=== PATIENT | female | born 1950 | race Caucasian/White ===

== ENCOUNTER 2019-11-01 16:43 | Inpatient (IN) | payer MEDICARE, OTHER ==
[~2019-11-01] VITALS: Ht 152.4 cm; Wt 84.4 kg
[~2019-11-01 16:43] MED LIST: ATORVASTATIN CA20 MG PO; DEXAMETHASONE SOD PHOS INJ 4 MG/ML VIAL ONE; ETOMIDATE 2 MG/ML 10 ML INJ IV ONE; ISOSORBIDE MONO30 MG PO; LIDOCAINE HCL 2% LOCAL INJ 5 ML SDV VIAL INJ ONE; ONDANSETRON HCL INJ 2MG/ML 2ML 2 MG/ML VIAL ONE; SEVOFLURANE INHAL SOLN 250 ML PEN BTL ONE
--- OUTSIDE RECORDS SUMMARY | 2019-11-01 16:47 | XMS REPORT | Summary of Care ---
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 2Data migrated from [employer] on 01/21/15. Allergies, Adverse Reactions, Alerts Substance Reaction Severity Status cyclobenzaprine1 Active 1Data migrated from [employer] on 01/20/15. Originally documented as CYCLOBENZAPRINE HCL. Medications No data available for this section Results No data available for this section Immunizations No data available for this section Procedures Procedure Date Related Diagnosis Body Site MRI of cervical spine1 07/20/14 Cauterization of uterus Dilation and curettage of uterus Procedure on ankle joint 1mri cervical w/wo Social History Social History Type Response Substance Abuse Use: None. Alcohol Past Smoking Status Never smoker; Type: Cigaret omega; Previous treatment: None; Ready to change: No; Concerns about tobacco use in house hold: No; Exposure to Tobacco Smoke None; Cigarette Smoking Last 365 Days N o; Reg Smoking Cessation Counseling No Assessment and Plan No data available for this section
--- OUTSIDE RECORDS SUMMARY | 2019-11-01 16:47 | XMS REPORT | Continuity of Care Document ---
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 [facility] Benign neoplasm of vertebral column, exc luding sacrum and coccyx (disorder) Active 08/22/2014 Problem 04/02/2016 Data migrated from [employer] on 01/21/15. [facility] OPIChastity Donald Urinary incontinence (finding) Resolved Problem 08/2015 [facility] [place] History of malignant neoplasm of cervix (situation) Resolved Problem 04/02/2016 [facility] Hypercholesterolemia (disorder) Resolved Problem 08/2015 [facility] OPIChastity [place] Osteoarthritis (disorder) Reso lved Problem 08/2015 [facility] OPID [place] Obesity (disorder) Active Problem 04/02/2016 [facility] Malignant neoplasm of skin (disorder) Resolved Problem 04/02/2016 [facility] OPI D Odilon CARCINOMA IN SITU OF CERVIX, UNSPECIFIED Active [facility] Medications Medication Details Route Status Patient Instructions Ordering Provider Order Date Source docusate sodium 100 mg oral capsule 100 mg = 1 cap, PO, BID, PRN Constipation, # 60 cap, 0 Refill(s) Active 10/22/2015 [facility] Acetaminophen 325 MG / Hydrocodone Alejandra trate 5 MG Oral Tablet [[place] 5/325] 1 tab, PO, QID, PRN Pain Score 1-3, # 60 tab, 0 Refill(s), other Active 10/22/2015 [facility] fentaNYL (ANES) Route: IV, Yuri g form: INJ, ONCE, Stop date: 10/21/15 16:10:00 CDT Inactive 10/21/2015 [facility] Enoxaparin Notes: (Same as: Lo venox) No Longer Active 10/21/2015 [facility] Hydromorphone Notes: (Same as: Dilaudid) conc = 0.5 mg/ml Hydromorphone [employer]ILDER Dose: ;Delay: ;Basal: No Longer Active 10/21/2015 [facility] Acetaminophen 325 MG / Hydrocodone Alejandra trate 5 MG Oral Tablet [[place] 5/325] Notes: (Same as: [place] 325/5) Do not ex ceed 4gm/day of acetaminophen. No Longer Activ e 10/21/2015 [facility] metoprolol (ANES) Route: IV, D rug form: INJ, ONCE, Stop date: 10/21/15 15:51:00 CDT Inactive 10/21/2015 [facility] ondansetron (ANES) Route: IV, Drug form: INJ, ONCE, Stop date: 10/21/15 15:51:00 CDT Inactive 10/21/2015 [facility] Docusate Notes: (Same as: Cola ce) (Do Not Crush) No Longer Active 10/21/2015 [facility] Ondansetron Notes: (Same as: Blair mendez) MEDICATION WASTE Product Size: 4 mg Product Wasted: ___ mg No Longer Active 10/21/2015 [facility] Calcium Chloride 0.002 MEQ/ML / Glucose 50 MG/ML / Potassium Chloride 0.004 MEQ/ML / Sodium Chloride 0.147 MEQ/ML Injectable Solution 1,000 mL, Rate: 125 ml/hr, Infuse over: 8 hr, Route: IV, Dosing Weight 84.091 kg, Total Volume: 1,000, Start date: 10/21/15 15:48:00 CDT, Duration: 30 day, Stop date: 11/20/15 15:47:00 CDT No Longer Active 10/21/2015 [facility] Simethicone Notes: (Same as: Hammad ylicon) No Longer Active 10/21/2015 [facility] Bisacodyl Notes: (Same As: Dul colax, Bisco-Lax) No Longer Active 10/21/2015 [facility] Magnesium Hydroxide Notes: ([facility] as: Milk of Magnesia, MOM) No Longer Active 10/21/2015 [facility] Naloxone Notes: Same as Narcan No Longer Active 10/21/2015 [facility] Calcium Chloride 0.0014 MEQ/ML / Potassi um Chloride 0.004 MEQ/ML / Sodium Chloride 0.103 MEQ/ML / Sodium Lactate 0.028 MEQ/ML Injectable Solution 1,000 mL, Rate: 500 ml/hr, Infuse over: 2 hr, Route: IV, Dosing Weight 84.091 kg, Total Volume: 1,000, Start date: 10/21/15 15:37:00 CDT, Duration: 30 day, Stop date: 11/20/15 15:36:00 CDT Inactive 10/21/2015 [facility] Morphine 2 mg, Route: IVP, Q5M in, Dosing Weight 84.091, kg, PRN Pain Score 4-6, Start date: 10/21/15 15:37:00 CDT, Duration: 5 doses or times, Stop date: Limited # of times Inactive 10/21/2015 [facility] Hydralazine 10 mg, Route: IVP, Q20Min, Dosing Weight 84.091, kg, PRN Elevated BP, Start date: 10/21/15 15:37:00 CDT, Duration: 2 doses or times, Stop date: Limited # of times Inactive 10/21/2015 [facility] Metoprolol 1 mg, Route: IVP, Q 5Min, Dosing Weight 84.091, kg, PRN Other -See Comment, Start date: 10/21/15 15:37:00 CDT, Duration: 5 doses or times, Stop date: Limited # of times Inactive 10/21/2015 [facility] Meperidine 12.5 mg, Route: IVP , Q30Min, Dosing Weight 84.091, kg, PRN Other -See Comment, For shivering, Start date: 10/21/15 15:37:00 CDT, Duration: 2 doses or times, Stop date: Limited # of times Inactive 10/21/2015 [facility] Fentanyl 25 microgram, Route: IVP, Q5Min, Dosing Weight 84.091, kg, PRN Pain Score 4-6, Start date: 10/21/15 15:37:00 CDT, Duration: 4 doses or times, Stop date: Limited # of times Inactive 10/21/2015 [facility] ceFAZolin (ANES) (ANES) Route: IV, Drug form: INJ, Start date: 10/21/15 15:03:00 CDT, Stop date: 10/21/15 16:03:00 CDT Inactive 10/21/2015 [facility] hydromorphone (ANES) Route: IV , Drug form: INJ, ONCE, Stop date: 10/21/15 13:55:00 CDT Inactive 10/21/2015 [facility] dexamethasone (ANES) Route: IV , Drug form: INJ, ONCE, Stop date: 10/21/15 13:19:00 CDT Inactive 10/21/2015 [facility] metoclopramide (ANES) Route: I V, Drug form: INJ, ONCE, Stop date: 10/21/15 13:19:00 CDT Inactive 10/21/2015 [facility] glycopyrrolate (ANES) Route: I V, Drug form: INJ, ONCE, Stop date: 10/21/15 13:03:00 CDT Inactive 10/21/2015 [facility] acetaminophen (ANES) (ANES) [place]: IV, Drug form: INJ, Start date: 10/21/15 12:46:00 CDT, Stop date: 10/21/15 13:46:00 CDT Inactive 10/21/2015 [facility] rocuronium (ANES) Route: IV, D rug form: INJ, ONCE, Stop date: 10/21/15 12:35:00 CDT Inactive 10/21/2015 [facility] fentaNYL (ANES) Route: IV, Yuri g form: INJ, ONCE, Stop date: 10/21/15 12:35:00 CDT Inactive 10/21/2015 [facility] lidocaine (ANES) Route: IV, Dr ug form: INJ, ONCE, Stop date: 10/21/15 12:35:00 CDT Inactive 10/21/2015 [facility] propofol (ANES) Route: IV, Yuri g form: INJ, ONCE, Stop date: 10/21/15 12:35:00 CDT Inactive 10/21/2015 [facility] midazolam (ANES) Route: IV, Dr ug form: SOLN, ONCE, Stop date: 10/21/15 12:35:00 CDT Inactive 10/21/2015 [facility] ceFAZolin (ANES) (ANES) Route: IV, Drug form: INJ, Start date: 10/21/15 12:06:00 CDT, Stop date: 10/21/15 13:06:00 CDT Inactive 10/21/2015 [facility] Lactated Ringers Injection IV (ANES) (ANES) Route: IV, Total Volume: 1,000, Start date: 10/21/15 11:38:00 CDT, Stop date: 10/21/15 12:38:00 CDT Inactive 10/21/2015 [facility] Calcium Chloride 0.0014 MEQ/ML / Potassi um Chloride 0.004 MEQ/ML / Sodium Chloride 0.103 MEQ/ML / Sodium Lactate 0.028 MEQ/ML Injectable Solution 1,000 mL, Rate: 25 ml/hr, Infuse over: 4 0 hr, Route: IV, Dosing Weight 84.091 kg, Total Volume: 1,000, Start date: 10/21/15 11:29:00 CDT, Duration: 30 day, Stop date: 11/20/15 11:28:00 CDT Inactive 10/21/2015 [facility] AMLODIPINE BESY-BENAZEPRIL HCL 5-10 MG CAPS 1 TAB DAILY Active 08/22/2014 [facility] DIAZEPAM 5 MG TABS 1 TAB DAILY No Longer Active 08/22/2014 [facility] AMLODIPINE BESY-BENAZEPRIL HCL 5-10 MG CAPS 1 TAB DAILY Active 08/22/2014 [facility] AMLODIPINE BESY-BENAZEPRIL HCL 5-10 MG CAPS 1 TAB DAILY Active 08/22/2014 [facility] Allergies, Adverse Reactions, Alerts Substance Category Reaction Severity Reaction type Status Date Reported Comments Source CYCLOBENZAPRINE HCL Drug aller gy CYCLOBENZA PAMELA HCL 08/22/2014 [facility] cyclobenzaprine<sup>1</sup> As sertion Drug aller gy Active 08/22/2014 Data migrated from [employer] on 01/20/15. Originally documented as CYCLOBENZAPRINE HCL. [facility] Dilaudid Assertion Drug allergy Active [facility] Immunizations No Data Provided for This Section Results Order Name Results Value Reference Range Date Interpretation Comments Source CHEM PANEL Magnesium Lvl 1.9 1.8 - 2.4 10/22/2015 [facility] ELECTROLYTES CO2 25 24 - 32 10/22/2015 [facility] ELECTROLYTES eGFR 98 10/22/2015 Result Comment: The eGFR is calculated using the CKD-EPI formula. In most young, healthy individuals the eGFR will be >90 mL/min/1.73m2. The eGFR declines with age. An eGFR of 60-89 may be normal in some populations, particularly the elderly, for whom the CKD-EPI formula has not been extensively validated. Use of the eGFR is not recommended in the following populations:

Individuals with unstable creatinine concentrations, including patients and those with serious co-morbid conditions.

Patients with extremes in muscle mass or diet.

The data above are obtained from the National Kidney Disease Education Program (NKDEP) which additionally recommends that when the eGFR is used in patients with extremes of body mass index for purposes of drug dosing, the eGFR should be multiplied by the estimated BMI. [facility] ELECTROLYTES Globulin 3.2 2.0 - 4.0 10/22/2015 [facility] ELECTROLYTES Total Protein 5.9 6.4 - 8.4 10/22/2015 [facility] ELECTROLYTES B/C Ratio 19 6 - 25 10/22/2015 [facility] ELECTROLYTES Calcium Lvl 7.9 8.5 - 10.5 10/22/2015 [facility] ELECTROLYTES Chloride Lvl 109 95 - 109 10/22/2015 [facility] ELECTROLYTES AGAP 11.8 10.0 - 20.0 10/22/2015 [facility] ELECTROLYTES Bili Total 0.5 0.2 - 1.3 10/22/2015 [facility] ELECTROLYTES Alk Phos 81 39 - 136 10/22/2015 [facility] ELECTROLYTES Creatinine Lvl 0.5 4 0.50 - 1.40 10/22/2015 [facility] ELECTROLYTES Potassium Lvl 3.8 3.5 - 5.1 10/22/2015 [facility] ELECTROLYTES Sodium Lvl 142 135 - 145 10/22/2015 [facility] ELECTROLYTES ALT 21 0 - 65 10/22/2015 [facility] ELECTROLYTES AST 18 0 - 37 10/22/2015 [facility] ELECTROLYTES A/G Ratio 0.8 0.7 - 1.6 10/22/2015 [facility] ELECTROLYTES Albumin Lvl 2.7 3.5 - 5.0 10/22/2015 [facility] ELECTROLYTES BUN 10 7 - 22 10/22/2015 [facility] ELECTROLYTES Glucose Lvl 152 70 - 99 10/22/2015 [facility] HEMATOLOGY Segs 75.9 45.0 - 75.0 10/22/2015 [facility] HEMATOLOGY Lymphocytes 15.0 20.0 - 40.0 10/22/2015 [facility] Monocytes 8.7 2.0 - 12.0 10/22/2015 [facility] HEMATOLOGY Eosinophils 0.1 0.0 - 4.0 10/22/2015 [facility] HEMATOLOGY Basophils 0.3 0.0 - 1.0 10/22/2015 [facility] Segs-Bands # 7.3 1.5 - 8.1 10/22/2015 [facility] Lymphocytes # 1.5 1.0 - 5.5 10/22/2015 [facility] Monocytes # 0.8 0.0 - 0.8 10/22/2015 [facility] WBC 9.7 3.7 - 10.4 10/22/2015 [facility] RBC 3.66 4.20 - 5.40 10/22/2015 [facility] Hct 34.7 36.0 - 48.0 10/22/2015 [facility] MCV 94.9 80.0 - 98.0 10/22/2015 [facility] MCH 31.3 27.0 - 31.0 10/22/2015 [facility] Hgb 11.5 12.0 - 16.0 10/22/2015 [facility] MCHC 33.0 32.0 - 36.0 10/22/2015 [facility] RDW 12.9 11.5 - 14.5 10/22/2015 [facility] Platelet 154 133 - 450 10/22/2015 [facility] MPV 9.0 7.4 - 10.4 10/22/2015 [facility] CHEM PANEL eGFR 83 10/22/2015 Result Comment: The eGFR is calculated using the CKD-EPI formula. In most young, healthy individuals the eGFR will be >90 mL/min/1.73m2. The eGFR declines with age. An eGFR of 60-89 may be normal in some populations, particularly the elderly, for whom the CKD-EPI formula has not been extensively validated. Use of the eGFR is not recommended in the following populations:

Individuals with unstable creatinine concentrations, including patients and those with serious co-morbid conditions.

Patients with extremes in muscle mass or diet.

The data above are obtained from the National Kidney Disease Education Program (NKDEP) which additionally recommends that when the eGFR is used in patients with extremes of body mass index for purposes of drug dosing, the eGFR should be multiplied by the estimated BMI. [facility] CHEM PANEL Creatinine Lvl 0.75 0.50 - 1.40 10/22/2015 [facility] HEMATOLOGY PTT 22.5 22.9 - 35.8 10/22/2015 [facility] HEMATOLOGY Platelet 140 133 - 450 10/22/2015 [facility] BLOOD BANK RESULTS ABO/Rh A POS 10/15/2015 [facility] BLOOD BANK RESULTS Antibody Scrn Negative (10/15/15 5:25 PM) 10/15/2015 [facility] ELECTROLYTES AGAP 12.1 10.0 - 20.0 10/15/2015 [facility] ELECTROLYTES B/C Ratio 28 6 - 25 10/15/2015 [facility] ELECTROLYTES Globulin 3.6 2.0 - 4.0 10/15/2015 [facility] ELECTROLYTES A/G Ratio 1.1 0.7 - 1.6 10/15/2015 [facility] ELECTROLYTES eGFR 94 10/15/2015 Result Comment: The eGFR is calculated using the CKD-EPI formula. In most young, healthy individuals the eGFR will be >90 mL/min/1.73m2. The eGFR declines with age. An eGFR of 60-89 may be normal in some populations, particularly the elderly, for whom the CKD-EPI formula has not been extensively validated. Use of the eGFR is not recommended in the following populations:

Individuals with unstable creatinine concentrations, including patients and those with serious co-morbid conditions.

Patients with extremes in muscle mass or diet.

The data above are obtained from the National Kidney Disease Education Program (NKDEP) which additionally recommends that when the eGFR is used in patients with extremes of body mass index for purposes of drug dosing, the eGFR should be multiplied by the estimated BMI. [facility] ELECTROLYTES Calcium Lvl 8.5 8.5 - 10.5 10/15/2015 [facility] ELECTROLYTES Total Protein 7.4 6.4 - 8.4 10/15/2015 [facility] ELECTROLYTES Albumin Lvl 3.8 3.5 - 5.0 10/15/2015 [facility] ELECTROLYTES AST 30 0 - 37 10/15/2015 [facility] ALT 33 0 - 65 10/15/2015 [facility] Alk Phos 101 39 - 136 10/15/2015 [facility] Bili Total 0.3 0.2 - 1.3 10/15/2015 [facility] BUN 17 7 - 22 10/15/2015 [facility] Glucose Lvl 82 70 - 99 10/15/2015 [facility] Creatinine Lvl 0.6 0 0.50 - 1.40 10/15/2015 [facility] Sodium Lvl 138 135 - 145 10/15/2015 [facility] Potassium Lvl 4.1 3.5 - 5.1 10/15/2015 [facility] CO2 24 24 - 32 10/15/2015 [facility] Chloride Lvl 106 95 - 109 10/15/2015 [facility] Eosinophils 4.6 0.0 - 4.0 10/15/2015 [facility] Monocytes 7.2 2.0 - 12.0 10/15/2015 [facility] Segs 45.1 45.0 - 75.0 10/15/2015 [facility] Lymphocytes 42.1 20.0 - 40.0 10/15/2015 [facility] Eosinophils # 0.3 0.0 - 0.5 10/15/2015 [facility] Monocytes # 0.4 0.0 - 0.8 10/15/2015 [facility] Segs-Bands # 2.6 1.5 - 8.1 10/15/2015 [facility] Basophils 1.0 0.0 - 1.0 10/15/2015 [facility] Lymphocytes # 2.4 1.0 - 5.5 10/15/2015 [facility] Basophils # 0.1 0.0 - 0.2 10/15/2015 [facility] MCV 94.7 80.0 - 98.0 10/15/2015 [facility] Hct 40.4 36.0 - 48.0 10/15/2015 [facility] Hgb 13.3 12.0 - 16.0 10/15/2015 [facility] RBC 4.27 4.20 - 5.40 10/15/2015 [facility] WBC 5.7 3.7 - 10.4 10/15/2015 [facility] MPV 9.0 7.4 - 10.4 10/15/2015 [facility] MCHC 32.8 32.0 - 36.0 10/15/2015 [facility] HEMATOLOGY MCH 31.1 27.0 - 31.0 10/15/2015 [facility] HEMATOLOGY Platelet 215 133 - 450 10/15/2015 [facility] HEMATOLOGY RDW 12.9 11.5 - 14.5 10/15/2015 [facility] Pathology Reports No Data Provided for This Section Diagnostic Reports Report Value Date Source Spine cervical w/wo contrast MRI EXAM: MRI CERVICAL SPINE WITH AND WITHOUT CONTRAST DATE: 03/30/2016 10:58 AM CDT INDICATION: Pain with radiculopathy COMPARISON: Magnetic resonance imaging cervical spine without contrast 01/06/2016. TECHNIQUE: Multiplanar, multisequence imaging of the cervical spine. IV contrast: 18 mL Dotarem. FINDINGS: The cervical vertebral bodies are normal in height and unchanged in alignment. Laminectomy changes are seen at C1, C2 and C3. No discrete residual tumor is identified. Expected dural enhancement along the laminectomy defects. Spinal canal is patulous levels of prior surgery. Stable subtle myelomalacia at C2-C3. Stable degenerative changes throughout the remainder of the cervical spine. IMPRESSION: Stable postoperative changes following resection of the cervical canal meningioma without evidence of residual or recurrent tumor. 03/30/2016 [facility] Spine cervical wo contrast MRI EXAM: MRI CERVICAL SPINE WITHOUT CONTRAST DATE: 01/06/2016 INDICATION: history of C1-C3 laminectomy and excision of a intradural meningioma on 07/22/2014 COMPARISON: Magnetic resonance imaging cervical spine 07/20/2014, CT cervical spine 08/30/2014, magnetic resonance imaging cervical spine 01/24/2015 ( ) TECHNIQUE: Multiplanar, multisequence noncontrast imaging of the cervical spine. IV contrast: None. FINDINGS: The height and the structure of the cervical vertebral bodies are well- maintained. No bone marrow signal abnormality. Laminectomy changes at C1, C2 and C3. No discrete recurrent or residual tumor, however, evaluation is limited due to lack of IV contrast administration. The spinal canal is patulous with no cord compression. Stable subtle myelomalacic changes within the cord at C2-C3 level. Stable degenerative changes. IMPRESSION: Stable postoperative changes following gross total resection of the cervical canal meningioma with limited evaluation due to lack of IV contrast administration. No discrete new lesions and stable appearance of the degenerative changes in the cervical spine. 01/06/2016 [facility] Consultation Notes No Data Provided for This Section Discharge Summaries No Data Provided for This Section History and Physicals No Data Provided for This Section Vital Signs Vital Sign Value Date Comments Source Systolic (mm Hg) 99 10/22/2015 [facility] Diastolic (mm Hg) 57 10/22/2015 [facility] Respitory Rate 16 10/22/2015 [facility] Heart Rate 58 10/22/2015 [facility] Temperature Oral (F) 97.8 F 10/22/2015 [facility] Respitory Rate 14 10/22/2015 [facility] Systolic (mm Hg) 103 10/22/2015 [facility] Diastolic (mm Hg) 62 10/22/2015 [facility] Temperature Oral (F) 98.2 F 10/22/2015 [facility] Heart Rate 65 10/22/2015 [facility] Respitory Rate 16 10/22/2015 [facility] Heart Rate 74 10/22/2015 [facility] Systolic (mm Hg) 134 10/22/2015 [facility] Diastolic (mm Hg) 78 10/22/2015 [facility] Temperature Oral (F) 98.4 F 10/22/2015 [facility] Weight 84.091 10/15/2015 [facility] Height 154.94 cm 10/15/2015 [facility] BMI Calculated 35.03 10/15/2015 [facility] Weight 167.0 01/30/2015 [facility] Height 60 0 01/30/2015 [facility] Temperature Oral (F) 99.1 F 01/30/2015 [facility] Heart Rate 74 01/30/2015 [facility] Systolic (mm Hg) 124 01/30/2015 [facility] Diastolic (mm Hg) 78 01/30/2015 [facility] Weight 173.2 08/22/2014 [facility] Height 60 0 08/22/2014 [facility] Temperature Oral (F) 98.7 F 08/22/2014 [facility] Heart Rate 98 08/22/2014 [facility] Systolic (mm Hg) 141 08/22/2014 [facility] Diastolic (mm Hg) 85 08/22/2014 [facility] Encounters Location Location Details Encounter Type Encounter Number Reason For Visit Attending Provider ADM Date DC Date Status Source [facility] [place] [id number] Tc Naik MD 08/22/2014 08/22/2014 [facility] [place] [id number] Tc Naik MD 11/21/2014 11/21/2014 [facility] [place] [facility] [id number] Russel Momin 01/24/2015 01/25/2015 [facility] [place] [id number] Tc Naik MD 01/30/2015 01/30/2015 [facility] OBS Observation Patient [id number] Chas Duran IRENE 10/21/2015 10/22/2015 [facility] Outpatient [id number] RUSSEL MOMIN 12/04/2015 [facility] [place] [facility] [id number] Russel Momin Jr 01/06/2016 01/07/2016 [facility] [id number] RUSSEL MOMIN 01/08/2016 [facility] [place] [facility] [id number] Russel Momin Jr 03/30/2016 03/31/2016 [facility] [id number] RUSSEL MOMIN 04/01/2016 [facility] Procedures Procedure Code Date Perfomer Comments Source MRI of cervical spine<sup>1</sup> [id number] 07/20/2014 mri cervical w/wo [facility], [facility] Cauterization of uterus [id number] [facility], [facility] Dilation and curettage of uterus [id number] [facility] Procedure on ankle joint [id number] [facility], [facility] Assessment and Plan Assessment and Plan Date Source Extracted from:Title: Clinical Document Author: Madelaine Mcgowan MD Date: 10/22/15 Progress Note - Daily [facility] Completed: Thursday, OCTOBER 22, 2015, 08:41 by Madelaine Mcgowan MD RM: [id number] - 1D, SE C4B WOLFGANG GURROLA 65y (: 1950) F Attending: Chas Mendes MD Service: [facility] Reason for Admission: UNK Working DRG: None Documented Code status: Full Code [Ordered] Current diet: Isolation: None Documented Allergies: cyclobenzaprine SUBJECTIVE Patient hungry No SOB/CP/CESAR No N/V/D/C Pain well controlled on [employer]DER OBJECTIVE General- NAD, A&Ox3 CVS- RRR Chest- CTAB no wheezing Abdomen- Soft appropriately tender, +BS, incision CDI Extremities- no CCE Skin- No rashes or lesions appreciated 24hr Labs 10/21 0656 Magnesium Lvl 1.9 Sodium Lvl 142 Potassium Lvl 3.8 Chloride Lvl 109 CO2 25 AGAP 11.8 Glucose Lvl 152 H Creatinine Lvl 0.54 BUN 10 B/C Ratio 19 Total Protein 5.9 L Albumin Lvl 2.7 L Globulin 3.2 A/G Ratio 0.8 Calcium Lvl 7.9 L ALT 21 AST 18 Alk Phos 81 Bili Total 0.5 eGFR 98 WBC 9.7 RBC 3.66 L Hgb 11.5 L Hct 34.7 L MCV 94.9 MCH 31.3 H MCHC 33.0 RDW 12.9 Platelet 154 MPV 9.0 Segs 75.9 H Monocytes 8.7 Lymphocytes 15.0 L Eosinophils 0.1 Basophils 0.3 Segs-Bands # 7.3 Lymphocytes # 1.5 Monocytes # 0.8 10/20 1933 Creatinine Lvl 0.75 eGFR 83 Platelet 140 PTT 22.5 L 10/20 1010 Glucose POC 87 [place] still necessary (Yes/No): Line still necessary (Yes/No): Vitals Tmp(F) Pulse BP RR SpO2 FIO2 10/21 03:56 98 76 94/60 16 --- --- 10/20 22:48 ---- --- ----- 1 6 100 --- 10/20 22:32 98.2 66 117/64 1 6 --- --- 10/20 21:40 ---- --- ----- - - 100 --- 10/20 19:31 97.6 62 125/70 1 6 --- --- 24 Hr Tmax: 98.4F (36.89c) at 10/20 17:4 2 Vital Signs are the last 5 in the past 48 hours. Date Wt(kg) Wt(lb) Ht(cm) Ht(in) Method 10/14 (initial) 84.09 185.00 Measured 10/14 154.94 61.00 Stated I&O Record In Out Bal 10/20 24hr Tot 4668 1600 3068 10/19 24hr Tot 0 0 0 Medications (21) Active Scheduled Meds (1): 10/21/15 enoxaparin 40 mg SUB-Q [id number] Unscheduled Meds: None PRN Meds (8): 10/21/15 acetaminophen-hydrocodone (Norc o 5/325 oral tablet) 1 tab PO Q4H 10/21/15 acetaminophen-hydrocodone (Norc o 5/325 oral tablet) 2 tab PO Q4H 10/21/15 bisacodyl 10 mg MA Q12H 10/21/15 docusate 100 mg PO BID 10/21/15 magnesium hydroxide 30 ml PO Da avelino 10/21/15 naloxone 0.04 mg IVP Q2MIN 10/21/15 ondansetron 4 mg IVP Q6H 10/21/15 simethicone 160 mg PO Q2H One Time Meds (12): (Completed) dexamethasone (dexamethasone (ANES)) IV ONCE (Completed) fentaNYL (fentaNYL (ANES)) IV ONCE (Completed) fentaNYL (fentaNYL (ANES)) IV ONCE (Completed) glycopyrrolate (glycopyrrolate (ANES)) IV ONCE (Completed) hydromorphone (hydromorphone (ANES)) IV ONCE (Completed) lidocaine (lidocaine (ANES)) IV ONCE (Completed) metoclopramide (metoclopramide (ANES)) IV ONCE (Completed) metoprolol (metoprolol (ANES)) IV ONCE (Completed) midazolam (midazolam (ANES)) IV ONCE (Completed) ondansetron (ondansetron (ANES)) IV ONCE (Completed) propofol (propofol (ANES)) IV ONCE (Completed) rocuronium (rocuronium (ANES)) IV ONCE Continuous Infusions: None ASSESSMENT and EXAM 1) Pain- transition to PO meds 2) Pulm/CV-VSS, continue IS 3) Heme-Hg stable ,no sx of anemia. 4) GI-ADAT 5) -void trial today 6) PPX-IS, SCDs, progressive ambulation. Anticipate DC home today Madelaine Mcgowan MD Gynecologic Oncology Staff [phone] Extracted from:Title: PORTRAIT PAINTER ONC Author: Chas Mendes MD Date: 10/21/15 Reason For Visit WOLFGANG GURROLA is a(n) 65 year old female being seen for a consultation HOLLI 3 present at margins of recent LEEP. History of Present Illness HPI Ms. 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 She initially underwent a LEEP procedure in 2011. Most recently, she underwent a LEEP procedure in August 2015, which demonstrated CIN3 present to the margins of the specimen. She has been referred to our service by Dr. Maryann Nino for further management. Ms. Gurrola is tolerating a regular diet. 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 Ms. Gurrola reports normal bowel and bladder function. She has experienced very minimal spotting on about 6 occasions since her LEEP in August 2015. Ms. Gurrola currently denies pain. She is a GOG PS 0, Karnofsky scale 90%. 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 Abnormality included benign cyst. Review of Systems Const: no fever,no chills,no recent weight gainandno recent weight loss. EENT: no vision changesandno tinnitus. CV: no chest pain or discomfortandno palpitations. Resp: no shortness of breath,no coughandno wheezing. GI: no constipation,no diarrhea,no abdominal pain,no bloating,no nausea,no vomiting,appetite not decreasedandno taste disturbances. Skin: no skin lesions,no rash,no dry skin,no nail changesandno alopecia. : no change in urinary frequency,no feelings of urinary urgency,no dysuria,no hematuria,no bladder painandno pelvic pain The patient presents with complaints of nonmenstrual bleeding (Minimal spotting on about 6 occasions following LEEP procedure in 08/2015). Musc: no muscle aches,no arthralgias,no generalized pain,no feeling weak,no leg painandno edema. Neuro: no numbness,no tingling,no burning sensationandgood coordination. Psych: no anxietyandno depression. Endo: no hot flashesandno night sweats. Heme/Lymph: no lymphedemaandno tendency for easy bruising. 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 Para: 2 (full-term),2 (abortions)and2 (living). Her current reproductive status is postmenopausal. The last menstrual period began 54 years old. Current menstrual history includes regular menstrual cycles and a menstrual interval of q 28 days. She is not . Social History Denies alcohol consumption (V49.89) (Z78.9) Former smoker (V15.82) (Z87.891) No drug use Current Meds Cyclobenzaprine HCl - 10 MG Oral Tablet; TAKE 1 TABLET 3 TIMES DAILY NEEDED; Therapy: 14Jun2014 to (Evaluate:[id number]) Requested for: 17Jun2014; Last Rx:17Jun2014; Status: ACTIVE - Retrospective Authorization Ordered Meloxicam 15 MG Oral Tablet; TAKE 1 TABLET Daily PRN PAIN. TAKE WITH FOOD; Therapy: 01May2014 to (Evaluate:30Jul2014) Requested for: 02Pcg1245; Last Rx:[id number]; Status: ACTIVE - Retrospective Authorization Ordered Sulfamethoxazole-TMP DS 800-160 MG TABS; TAKE 1 TABLET TWICE DAILY WITH FOOD; Therapy: 15Apr2014 to (Evaluate:22Apr2014); Last Rx:15Apr2014; Status: ACTIVE - Retrospective Authorization Ordered Allergies No Known Drug Allergies Physical Exam from clinic 10/13/15 Constitutional: pleasant appearing,well developed,well nourished,in no acute distressandalert. Neck: the appearance of the neck was normal,the neck was supple,no neck mass was observed,the thyroid was not enlargedandthere were no palpable thyroid nodules. There was no jugular-venous distention. Pulmonary: no respiratory distress,normal respiratory rhythm and effort,no accessory muscle useandclear to auscultation bilaterally. Heart: heart rate and rhythm were normal,normal S1 and S2,no gallops,no murmursandno pericardial rub. Abdomen: normal bowel sounds,soft,non-tender,no hepato-splenomegaly,no abdominal mass palpated,no herniasandno ascites. Genitourinary: Breast exam: the appearance of the breasts was normalandthere were no breast masses noted on palpation. Normal external genitalia. No lesions were seen on the external genitalia. The labia majora were normal. Both Bartholin's glands were normal. The labia minora were normal. The clitoris was normal. The urethral meatus was normal. The urethra was normal. Vaginal exam showed no abnormalitiesandno mass. there was no active vaginal bleeding. The cervix is flush with the vagina and there is evidence of blackened discoloration consistent with healing from recent LEEP procedure. The uterus was normal. unable to palpate; Not enlarged. The adnexa were not tender and not enlarged. Palpation of the bladder revealed no abnormalities. Examination of the perineum demonstrated no abnormalities. Lymphatics: The posterior cervical, anterior cervical, supraclavicular, axillary and inguinal nodes were non-tender and normal size. Skin: normal skin color and pigmentation,normal skin turgor,no rashandno skin lesions. Musculoskeletal: normal gait,no clubbing or cyanosis of the fingernailsandthere was no joint instability noted. Neurological: motor and sensory function grossly intact, butcranial nerves 2-12 were intact. Psychiatric: oriented to person, place, and time,insight and judgment were intact,the affect was normalandthe mood was normal. Assessment 1. History of hypertension (V12.59) (Z86.79) 2. History of hypothyroidism (V12.29) (Z86.39) 3. 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 History of hysterectomy (V88.01) (Z90.710) : Mother 5. Former smoker (V15.82) (Z87.891) 6. Denies alcohol consumption (V49.89) (Z78.9) 7. No drug use Discussion/Summary Ms. 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 1. HOLLI 3: The patient has been counseled to undergo a laparoscopically -assisted vaginal hysterectomy with bilateral salpingo-oophorectomy and any other procedures indicated at the time of the operation for definitive surgical management. All risks, benefits and alternatives to this procedure were discussed at length with the patient, and all questions were answered to the patient's satisfaction. Risks associated with the procedure, which were discussed with the patient include pain, infection, bleeding, sterility, menopause, blood clots, and damage to the surrounding bowel, bladder and ureters . The patient was counseled regarding the measures that will be taken to avoid such risks. These measures include, but are not limited to administration of antibiotics at the time of surgery to prevent infection, administration of pain medication, and the use of SCDs to prevent blood clots. the patient acknowledged all of these risks, and a surgical consent was signed. 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 She currently works part-time and has help during the week with any heavy lifting. Sundays are the only days that she is without extra help with heavy lifting/pushing patient in wheelchair, etc. Patient should RTC 2 weeks after surgery for initial post-operative evaluation. Desiree Duke, PGY 4 10/22/2015 [facility] Plan of Care No Data Provided for This Section Social History Social History Date Source Social History TypeResponse Substance Abuse Use: None. Alcohol Past Smoking Status Former smoker; Type: Cigarettes; Started at age: 18.0; Stopped at age: 24; Ready to change: No; Concerns about tobacco use in household: No; Exposure to Tobacco Smoke None; Cigarette Smoking Last 365 Days No; Reg Smoking Cessation Counseling No 10/15/2015 [facility] Social History TypeResponse Substance Abuse Use: None. Alcohol Past Smoking Status Former smoker; Type: Cigarettes; Started at age: 18.0; Stopped at age: 24; Exposure to Tobacco Smoke None; Cigarette Smoking Last 365 Days No; Reg Smoking Cessation Counseling No 10/15/2015 [facility] Family History No Data Provided for This Section Advance Directives No Data Provided for This Section Functional Status No Data Provided for This Section
--- OUTSIDE RECORDS SUMMARY | 2019-11-01 16:47 | XMS REPORT | Continuity of Care Document ---
Author Author MNA Organization MNA Address Unknown Phone Unavailable Care Team Providers Care Change Control Specialist Name Role Phone Gumaro PERALTA, Tc FINLEY Unavailable Insurance Providers Payer name Policy type / Coverage type Policy ID Covered libertarian ID Policy [place] MED[place]: [employer] Encounters Encounter Performer Location Date Office Visit Tc Naik MD [facility] [place] Aug 22, 2014 Allergies, Adverse Reactions, Alerts Type Substance Reaction Status Drug allergy CYCLOBENZAPRINE HCL Active Problems Problem Effective Dates Problem Status BENIGN NEOPLASM OF SPINAL CORD Aug 22, 2014 Active BENIGN NEOPLASM OF VERTEBRAL COLUMN, EXCLUDING SACRUM AND CO CCYX Aug 22, 2014 Active Procedures Date Description Comments Aug 22, 2014 smoking status Never smoker Medications Medication Instructions Start Date Status AMLODIPINE BESY-BENAZEPRIL HCL 5-10 MG CAPS 1 TAB DAILY Aug 22, 2014 Active DIAZEPAM 5 MG TABS 1 TAB DAILY Aug 22, 2014 Active Vital Signs Date Description Test Result Aug 22, 2014 weight E&M - 3141-9 WEIGHT 173.2 lb Aug 22, 2014 height E&M - 8302-2 HEIGHT 60 in Aug 22, 2014 temperature E&M TEMPERATURE 98.7 deg f Aug 22, 2014 pulse rate E&M - 8867-4 PULSE RATE 98 /min Aug 22, 2014 blood pressure, systolic - 8480-6 BP SYSTOLIC 141 mm Hg Aug 22, 2014 blood pressure, diastolic - 8462-4 BP DIASTOLIC 85 mm Hg
--- OUTSIDE RECORDS SUMMARY | 2019-11-01 16:47 | XMS REPORT | Continuity of Care Document ---
Author Author MNA Organization MNA Address Unknown Phone Unavailable Care Team Providers Care Epilepsy Physician Name Role Phone Gumaro PERALTA, Tc FINLEY Unavailable Insurance Providers Payer name Policy type / Coverage type Policy ID Covered libertarian ID Policy [place]: [employer] Encounters Encounter Performer Location Date Office Visit Tc Naik MD [facility] [place] Nov 21, 2014 Allergies, Adverse Reactions, Alerts Type Substance [...]
--- OUTSIDE RECORDS SUMMARY | 2019-11-01 16:47 | XMS REPORT | Continuity of Care Document ---
Author Author M[facility] Organization MNA Address Unknown Phone Unavailable Care Team Providers Care Concrete Bucket Hooker Name Role Phone uGmaro PERALTA, Tc FINLEY Unavailable Insurance Providers Payer name Policy type / Coverage type Policy ID Covered constitution party ID Policy [place] [employer] [place]AL[place]IED MEDICARE [place] Encounters Encounter Performer Location Date Office Visit Tc Naik MD [facility] [place] Jan 30, 2015 Allergies, Adverse Reactions, Alerts Type Substance Reaction [...] TABS 1 TAB DAILY Aug 22, 2014 Inactive Vital Signs Date Description Test Result Aug [...] - 8462-4 BP DIASTOLIC 85 mm Hg Jan 30, 2015 weight E&M - 3141-9 WEIGHT 167.0 lb Jan 30, 2015 height E&M - 8302-2 HEIGHT 60 in Jan 30, 2015 temperature E&M TEMPERATURE 99.1 deg f Jan 30, 2015 pulse rate E&M - 8867-4 PULSE RATE 74 /min Jan 30, 2015 blood pressure, systolic - 8480-6 BP SYSTOLIC 124 mm Hg Jan 30, 2015 blood pressure, diastolic - 8462-4 BP DIASTOLIC 78 mm Hg
--- OUTSIDE RECORDS SUMMARY | 2019-11-01 16:48 | XMS REPORT | Summary of Care ---
Author Author [facility] [place] Organization [facility] [place] Address Unknown Phone Unavailable Encounter HQ Aleks_tristan(FIN) [id number] Date(s): 03/30/16 - 03/30/16 [facility] Outpatient Imaging - [facility] [address] [place] [address]- Discharge Disposition: Home or Self Care Attending Physician: Russel Arora MD Vital Signs No data available for this section Problem List Condition Effective Dates Status Health Status Informan t Benign neoplasm of 08/22/14 Active spinal cord1 Benign neoplasm of 08/22/14 Active vertebral column, excluding sacrum and coccyx2 Bladder Resolved incontinence(Confirm ed) History of cervical Resolved cancer(Confirmed) Hypercholesterolemia Resolved (Confirmed) OA - Resolved Osteoarthritis(Confi rmed) Obesity(Confirmed) Active Skin Resolved cancer(Confirmed) 1Data migrated from [employer] on 01/21/15. 2Data migrated from [employer] on 01/21/15. Allergies, Adverse Reactions, Alerts Substance Reaction Severity Status cyclobenzaprine1 Active Dilaudid Active 1Data migrated from [employer] on 01/20/15. Originally documented as CYCLOBENZAPRINE HCL. [...] Alcohol Past Smoking Status Former smoker; Type: Cigare ttes; Started at age: 18.0; Stopped at age: 24; Ready to change: No; Concerns about tob acco use in household: No; Exposure to Tobacco Smoke None; Cigarette Smokin g Last 365 Days No; Reg Smoking Cessation Counseling No Assessment and Plan No data available for this section
--- OUTSIDE RECORDS SUMMARY | 2019-11-01 16:48 | XMS REPORT | Summary of Care ---
Author Author WOLFGANG STREETER M.D. Organization Unknown Address Unknown Phone Unavailable Care Team Providers Care Figure Skater Name Role Phone Fina Montero M.A. 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 Medications Name Dates Details No Reported Medications Active Allergies and Adverse Reactions Name Dates Details No Known Drug Allergies (Allergy) Status : Active Past Medical History Name Dates Details History of Cervical spine tumor (239.2, D49.2) Status: Resolved History of hypertension (V12.59, Z86.79) Status: Resolved History of hypothyroidism (V12.29, Z86.3 9) Status: Resolved Procedures Procedure Dates Details History of Laminectomy Excise Intraspina l Tumor Intradural, Extramedullary, Cervical Completed History of Ankle Repair Completed Immunization Name Dates Details Immunizations not documented Family History Name Dates Details Family history of History of hysterectom y (V88.01, Z90.710) Status: Active Social History Name Dates Details - Status: Name Dates Details Former smoker Vital Signs Date Test Result Details No Known Vitals to report Results Date Description Value Details Results not documented Plan of Care Name Dates Details Planned Observations Planned Goals not documented Interventions Provided Labs/Procedures/Imaging* [A] Dexa Scan ([employer] X-Ray) [id number]; To Be Done: 27 Nov 2018 * [place] Digital Mammo Screening James [id number]; To Be Done: 27 Nov 2018 Instructions Name Dates Details Instructions not documented Encounters Appointment; BALJEET STREETER M.D. Encounter Diagnosis: Problem not documented On: 27-Nov-2018 13:00
--- OUTSIDE RECORDS SUMMARY | 2019-11-01 16:48 | XMS REPORT | Continuity of Care Document ---
Author Author [facility] t Organization [facility] Address [address] [place] [address] Phone Unavailable Care Team Providers Care Business Process Architect Name Role Phone BALJEET DURAN M.D. 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 Problem Resolved [facility] History of hypertension History of hypertension Problem Resolved [facility] History of hypothyroidism History of hypothyroidism Problem Resolved [facility] Fracture of ankle, bimalleolar, open Fracture of ankle, bima lleolar, open Problem Active [facility] Encounter for follow-up surveillance of cervical cance r Encounter for follow-up surveillance of cervical cancer Problem Active [facility] Pelvic pain in female Pelvic pain in female Problem Active [facility] Breast cancer screening Breast cancer screening Problem Active [facility] Osteoporosis, post-menopausal Osteoporosis, post-menopausal Problem Active [facility] Urinary incontinence (finding) Urinary incontinence (finding) Resolved Problem 04/02/2016 [facility], [place] Problem Resolved 2016-04-02 00:07:58 [place] Hypercholesterolemia (disorder) Hypercholesterolemia (disorder) Resolved Problem 04/02/2016 [facility] [place] Problem Resolved 2016-04-02 00:07:58 [place] [place] Osteoarthritis (disorder) Oste oarthritis (disorder) Resolved Problem 04/02/2016 [facility] [place] Problem Resolved 2016-04-02 00:07:58 [facility] [place] Obesity (disorder) Obes ity (disorder) Active Problem 04/02/2016 [facility] [place] Problem Active 2016-04-02 00:07:58 [facility] [place] Malignant neoplasm of skin (disorder) Malignant neoplasm of skin (disorder) Resolved Problem 04/02/2016 [facility] [place] Problem Resolved 2016-04-02 00:07:58 [facility] [place] CARCINOMA IN SITU OF CERVIX, UNSPECIFIED CARCINOMA IN SITU OF CERVIX, UNSPECIFIED Active [facility] Diagnosis Active 2015-10-29 17:23:00 [facility] Allergies, Adverse Reactions, Alerts Allergy Name Allergy Type Status Severity Reaction(s) Onset Date Inacti ve Date Treating Clinician Comments Source cyclobenzaprine DA Active U 2018-10-10 00:00:00 [facility] cyclobenzaprine<sup>1</sup> cyclobenzaprine<sup>1</sup> Active 2014-08-22 05:00:00 [facility] CYCLOBENZAPRINE HCL CYCLOBENZAPRINE HCL Active 2014-08-22 0 0:00:00 [facility] Dilaudid Dilaudid Active [facility] Family History Family Member Diagnosis Comments Start Date Stop Date Source Mother Family history of History of hysterectomy [facility] Social History Social Habit Start Date Stop Date Quantity Comments Source Social History 2015-10-15 21:44:06 2015-10-15 21:44:06 [facility] Smoking Status Start Date Stop Date Source Former smoker [facility] Medications Ordered Medication Name Filled Medication Name Start Date Stop Da te Current Medication? Ordering Clinician Indication Dosage Frequency Signature (SIG) Comments Components Source docusate sodium 100 mg oral capsule 2015-10-22 12:47:00 Yes 100 mg = 1 cap, PO, BID, PRN Constipation, # 60 cap, 0 Refill(s) [facility] Acetaminophen 325 MG / Hydrocodone Bitartrate 5 MG Oral Tabl et [Brimson 5/325] 2015-10-22 12:47:00 Yes 1 tab, PO, QID, PRN Pain Score 1-3, # 60 tab, 0 Refill(s), other [facility] fentaNYL (ANES) 2015-10-21 21:10:00 No Route: IV, Drug form: INJ, ONCE, Stop date: 10/21/15 16:10:00 CDT [facility] Enoxaparin 2015-10-21 21:00:00 No Notes: (S levar as: Lovenox) [facility] Hydromorphone 2015-10-21 21:00:00 No Notes: (Same as: Dilaudid) conc = 0.5 mg/ml Hydromorphone [employer] Dose: ;Delay: ;Basal: [facility] Acetaminophen 325 MG / Hydrocodone Bitartrate 5 MG Oral Tabl et [Brimson 5/325] 2015-10-21 20:54:00 No Notes: (Same as: Brimson 325/5) Do not exceed 4gm/day of acetaminophen. [facility] metoprolol ([facility]) 2015-10-21 20:51:00 No Route: IV, Drug form: INJ, ONCE, Stop date: 10/21/15 15:51:00 CDT [facility] ondansetron ([facility]) 2015-10-21 20:51:00 No Route: IV, Drug form: INJ, ONCE, Stop date: 10/21/15 15:51:00 CDT [facility] Docusate 2015-10-21 20:48:00 No Notes: (Same as: Colace) (Do Not Crush) [facility] Ondansetron 2015-10-21 20:48:00 No Notes: (Same as: Ji) MEDICATION WASTE Product Size: 4 mg Product Wasted: ___ mg [facility] Calcium Chloride 0.002 MEQ/ML / Glucose 50 MG/ML / Potassium Chloride 0.004 MEQ/ML / Sodium Chloride 0.147 MEQ/ML Injectable Solution 20 13-10-23 20:48:00 No 1,000 mL, Rate : 125 ml/hr, Infuse over: 8 hr, Route: IV, Dosing Weight 84.091 kg, Total Volume: 1,000, Start date: 10/21/15 15:48:00 CDT, Duration: 30 day, Stop date: 11/20/15 15:47:00 CDT [facility] Simethicone 2015-10-21 20:48:00 No Notes: ( Same as: Mylicon) [facility] Bisacodyl 2015-10-21 20:48:00 No Notes: (Same As: Dulcolax, Bisco-Lax) [facility] Magnesium Hydroxide 2015-10-21 20:48:00 No Notes: (Same as: Milk of Magnesia, MOM) [facility] Naloxone 2015-10-21 20:48:00 No Notes: Same as Narcan [facility] Calcium Chloride 0.0014 MEQ/ML / Potassi um Chloride 0.004 MEQ/ML / Sodium Chloride 0.103 MEQ/ML / Sodium Lactate 0.028 MEQ/ML Injectable Solution 2015-10-21 20:37:00 No 1,000 mL, Rate: 500 ml/hr, Infuse over: 2 hr, Route: IV, Dosing Weight 84.091 kg, Total Volume: 1,000, Start date: 10/21/15 15:37:00 CDT, Duration: 30 day, Stop date: 11/20/15 15:36:00 CDT [facility] Morphine 2015-10-21 20:37:00 No 2 mg, Route: IVP, Q5Min, Dosing Weight 84.091, kg, PRN Pain Score 4-6, Start date: 10/21/15 15:37:00 CDT, Duration: 5 doses or times, Stop date: Limited # of times [facility] Hydralazine 2015-10-21 20:37:00 No 10 mg, Route: IVP, Q20Min, Dosing Weight 84.091, kg, PRN Elevated BP, Start date: 10/21/15 15:37:00 CDT, Duration: 2 doses or times, Stop date: Limited # of times [facility] Metoprolol 2015-10-21 20:37:00 No 1 mg, Route: IVP, Q5Min, Dosing Weight 84.091, kg, PRN Other -See Comment, Start date: 10/21/15 15:37:00 CDT, Duration: 5 doses or times, Stop date: Limited # of times [facility] Meperidine 2015-10-21 20:37:00 No 12.5 mg, Route: IVP, Q30Min, Dosing Weight 84.091, kg, PRN Other -See Comment, For shivering, Start date: 10/21/15 15:37:00 CDT, Duration: 2 doses or times, Stop date: Limited # of times [facility] Fentanyl 2015-10-21 20:37:00 No 25 microgram, Route: IVP, Q5Min, Dosing Weight 84.091, kg, PRN Pain Score 4-6, Start date: 10/21/15 15:37:00 CDT, Duration: 4 doses or times, Stop date: Limited # of times [facility] ceFAZolin (ANES) (ANES) 2015-10-21 20:03:00 No Route: IV, Drug form: INJ, Start date: 10/21/15 15:03:00 CDT, Stop date: 10/21/15 16:03:00 CDT [facility] hydromorphone (ANES) 2015-10-21 18:55:00 No Route: IV, Drug form: INJ, ONCE, Stop date: 10/21/15 13:55:00 CDT [facility] dexamethasone (ANES) 2015-10-21 18:19:00 No Route: IV, Drug form: INJ, ONCE, Stop date: 10/21/15 13:19:00 CDT [facility] metoclopramide (ANES) 2015-10-21 18:19:00 No Route: IV, Drug form: INJ, ONCE, Stop date: 10/21/15 13:19:00 CDT [facility] glycopyrrolate (ANES) 2015-10-21 18:03:00 No Route: IV, Drug form: INJ, ONCE, Stop date: 10/21/15 13:03:00 CDT [facility] acetaminophen (ANES) (ANES) 2015-10-21 17:46:00 No Route: IV, Drug form: INJ, Start date: 10/21/15 12:46:00 CDT, Stop date: 10/21/15 13:46:00 CDT [facility] rocuronium ([facility]) 2015-10-21 17:35:00 No Route: IV, Drug form: INJ, ONCE, Stop date: 10/21/15 12:35:00 CDT [facility] fentaNYL (ANES) 2015-10-21 17:35:00 No Route: IV, Drug form: INJ, ONCE, Stop date: 10/21/15 12:35:00 CDT [facility] lidocaine (ANES) 2015-10-21 17:35:00 No Route: IV, Drug form: INJ, ONCE, Stop date: 10/21/15 12:35:00 CDT [facility] propofol (ANES) 2015-10-21 17:35:00 No Route: IV, Drug form: INJ, ONCE, Stop date: 10/21/15 12:35:00 CDT [facility] midazolam (ANES) 2015-10-21 17:35:00 No Route: IV, Drug form: SOLN, ONCE, Stop date: 10/21/15 12:35:00 CDT [facility] ceFAZolin (ANES) (ANES) 2015-10-21 17:06:00 No Route: IV, Drug form: INJ, Start date: 10/21/15 12:06:00 CDT, Stop date: 10/21/15 13:06:00 CDT [facility] Lactated Ringers Injection IV (ANES) (ANES) 2015-10-21 16:38:00 No Route: IV, Total Volume: 1,000, Start date: 10/21/15 11:38:00 CDT, Stop date: 10/21/15 12:38:00 CDT [facility] Calcium Chloride 0.0014 MEQ/ML / Potassi um Chloride 0.004 MEQ/ML / Sodium Chloride 0.103 MEQ/ML / Sodium Lactate 0.028 MEQ/ML Injectable Solution 2015-10-21 16:29:00 No 1,000 mL, Rate: 25 ml/hr, Infuse over: 40 hr, Route: IV, Dosing Weight 84.091 kg, Total Volume: 1,000, Start date: 10/21/15 11:29:00 CDT, Duration: 30 day, Stop date: 11/20/15 11:28:00 CDT [facility] AMLODIPINE BESY-BENAZEPRIL HCL 5-10 MG CAPS 2014-08-22 00:00:00 Yes 1 TAB DAILY [facility] DIAZEPAM 5 MG TABS 2014-08-22 00:00:00 No 1 TAB DAILY [facility] AMLODIPINE BESY-BENAZEPRIL HCL 5-10 MG CAPS 2014-08-22 00:00:00 Yes 1 TAB DAILY [facility] AMLODIPINE BESY-BENAZEPRIL HCL 5-10 MG CAPS 2014-08-22 00:00:00 Yes 1 TAB DAILY [facility] Vital Signs Vital Name Observation Time Observation Value Comments Source BP Systolic 2018-11-27 13:56:00 133 mm[Hg] Location: MARLON Watson on: Sitting [facility] BP Diastolic 2018-11-27 13:56:00 79 mm[Hg] Location: MARLON Watson on: Sitting [facility] Height 2018-11-27 13:56:00 154.51 cm [facility] Weight 2018-11-27 13:56:00 85.89 kg [facility] Body Mass Index Calculated 2018-11-27 13:56:00 35.98 kg/m2 [facility] Temperature 2018-11-27 13:56:00 98.9 [degF] Method: Oral [facility] Heart Rate 2018-11-27 13:56:00 71 /min [facility] Systolic (mm Hg) 2015-10-22 17:41:00 [facility] Diastolic (mm Hg) 2015-10-22 17:41:00 [facility] Respitory Rate 2015-10-22 17:41:00 [facility] Heart Rate 2015-10-22 17:41:00 [facility] Temperature Oral (F) 2015-10-22 17:41:00 97.8 F [facility] Respitory Rate 2015-10-22 15:48:00 [facility] Systolic (mm Hg) 2015-10-22 15:48:00 [facility] Diastolic (mm Hg) 2015-10-22 15:48:00 [facility] Temperature Oral (F) 2015-10-22 15:48:00 98.2 F [facility] Heart Rate 2015-10-22 15:48:00 [facility] Respitory Rate 2015-10-22 13:59:00 [facility]ast Heart Rate 2015-10-22 13:04:00 [facility] Systolic (mm Hg) 2015-10-22 13:04:00 [facility] Diastolic (mm Hg) 2015-10-22 13:04:00 [facility] Temperature Oral (F) 2015-10-22 13:04:00 98.4 F [facility] Weight 2015-10-15 21:32:00 [facility] Height 2015-10-15 21:32:00 154.94 cm [facility] BMI Calculated 2015-10-15 21:32:00 [facility] Weight 2015-01-30 18:47:40 [facility] Height 2015-01-30 18:47:40 [facility] Temperature Oral (F) 2015-01-30 18:47:40 99.1 F [facility] Heart Rate 2015-01-30 18:47:40 [facility] Systolic (mm Hg) 2015-01-30 18:47:40 Misc [facility] Diastolic (mm Hg) 2015-01-30 18:47:40 [facility] Weight 2014-08-22 16:24:11 [facility] Height 2014-08-22 16:24:11 [facility] Temperature Oral (F) 2014-08-22 16:24:11 98.7 F [facility] Heart Rate 2014-08-22 16:24:11 [facility] Systolic (mm Hg) 2014-08-22 16:24:11 [facility] Diastolic (mm Hg) 2014-08-22 16:24:11 [facility] Procedures Procedure Date / Time Performed Performing Clinician Erica perez MA Digital Mammo Screening James [id number] 2018-11-27 00:00:00 [facility] [O] Dexa Scan ([employer] X-Ray) [id number] 6253-07-01 00:00:00 [facility] MRI of cervical spine<sup>1</sup> 2014-07-20 06:00:00 [facility], [place] History of Laminectomy Excise Intraspina l Tumor Intradural, Extramedullary, Cervical [facility] History of Ankle Repair [facility] Cauterization of uterus [facility], [place] Dilation and curettage of uterus [facility], [facility] [place] Procedure on ankle joint [facility], [place] Encounters Start Date/Time End Date/Time Encounter Type Admission Type Attendi [facility] Facility Care Department Encounter ID Source 2018-11-27 13:00:00 2018-11-27 13:00:00 Appointment; BALJEET DURAN M.D. LUCCI, JOSEPH, M.D. [facility] Gynecologic Oncology - [facility] [id number] [facility] 2016-04-01 14:15:00 2016-04-01 14:15:00 Outpatient MHIEA LT IEALT [id number] [facility] 2016-03-30 15:27:00 2016-03-31 04:59:00 Outpt Diag Services MHIEALT [facility] Outpatient Imaging - [facility] [place] [id number] [place] 2016-03-30 10:27:00 2016-03-30 23:59:00 Outpatient Russel Elizabeth [id number] 2016-01-08 10:45:00 2016-01-08 10:45:00 Outpatient MHIEA LT MHIEALT [id number] [facility] 2016-01-06 15:21:00 2016-01-07 04:59:00 Outpt Diag Services MHIEALT [facility] Outpatient Imaging - [place] [id number] [place] 2016-01-06 10:21:00 2016-01-06 23:59:00 Outpatient Russel Elizabeth [id number] 2015-12-04 10:00:00 2015-12-04 10:00:00 Outpatient MHIEA LT MHIEALT [id number] [facility] 2015-10-21 20:52:00 2015-10-22 21:00:00 OBS Observation Patient MHIEALT [facility] [id number] [facility] 2015-10-21 15:52:00 2015-10-22 16:00:00 Outpatient Andreea Duran [facility] [id number] 2015-01-30 00:00:00 2015-01-30 00:00:00 Office Visit [facility] [id number] [facility] 2015-01-24 19:29:00 2015-01-25 04:59:00 Outpt Diag Services MH[facility] Outpatient Imaging - [facility] [place] [id number] [place] 2015-01-24 14:29:00 2015-01-24 23:59:00 Outpatient Russel Elizabeth [id number] 2014-11-21 00:00:00 2014-11-21 00:00:00 Office Visit [facility] [id number] [facility] 2014-08-22 00:00:00 2014-08-22 00:00:00 Office Visit [facility] [id number] [facility] Results Test Description Test Time Test Comments Results Result Comments Source BASIC METABOLIC PANEL 2018-10-10 09:36:00 Test Item SODIUM (test code = NA) 141 mmol/L 136-145 N POTASSIUM (test code = K) 4.0 mmol/L 3.5-5.1 N CHLORIDE (test code = CL) 107 mmol/L 101-109 N CARBON DIOXIDE (test code = CO2) 24.2 mmol/L 21-32 N ANION GAP (test code = GAP) 14 mmol/L 10-20 N GLUCOSE (test code = GLU) 112 mg/dL 74-106 H BLOOD UREA NITROGEN (test code = BUN) 16 mg/dL 3-21 N GLOMERULAR FILTRATION RATE (test code = GFR) > 60 mL/min >=60 Estimated GFR by using Modified MDRD formula.Chronic kidney disease is defined as either kidney damageor GFR <60 mL/min/1.73 m2 for >3 months. CREATININE (test code = CREAT) 0.74 mg/dL 0.55-1.3 N BUN/CREATININE RATIO (test code = BUN/CREA) 21.6 10-20 H CALCIUM (test code = CA) 8.0 mg/dL 8.4-10.2 L HEPATIC FUNCTION [id number] 09:36:00* Test Item Value Reference Range Interpretation Comments TOTAL PROTEIN (test code = PROT) 6.8 g/dL 6.5-8.4 N ALBUMIN (test code = ALB) 3.3 g/dL 3.4-4.8 L GLOBULIN (test code = GLOB) 3.5 G/DL 1-10 N ALBUMIN/GLOBULIN RATIO (test code = A/G) 0.94 RATIO 0.75-1.50 N BILIRUBIN TOTAL (test code = BILT) 0.70 mg/dL 0.0-1.0 N BILIRUBIN DIRECT (test code = BILD) 0.10 mg/dL 0.0-0.30 N SGOT/AST (test code = AST) 18 U/L 6-32 N SGPT/ALT (test code = ALT) 23 U/L 12-78 N N ote: Change in REFERENCE RANGE due to new reagent method. ALKALINE PHOSPHATASE TOTAL (test code = ALKP) 108 U/L 38-126 N [id number] 09:36:00* Test Item Value Reference Range Interpretation Comments LIPASE (test code = LIP) 160 U/L 128-270 N [id number] 09:36:00* Test Item Value Reference Range Interpretation Comments TROPONIN-I (test code = TROPI) <0.015 ng/mL 0.00-0.056 N - XR CHEST 1 [id number] 09:15:00 Name: WOLFGANG GURROLA [facility] : 1950 Age/S:68 /F [address] [facility] Unit#:[id number] [place]: [place] [address] Phys: Jose Moreno MD Dis Date: PHONE #: [phone] Status: REG ER FAX #: [phone] Exam Date: 10/10/2018 Reason: Abdominal Pain EXAMS: CPT CODE: [id number] XR CHEST 1 V 11988 TECHNIQUE: Single view chest COMPARISON: None provided. FINDINGS: Lungs: No nodules. No air space or interstitial lung disease. Lungs are normal in volume. Mediastinum and joss: No enlargement or other mass. Cardiovascular structures: Mild cardiomegaly. No abnormalities in vascular structures. Pleura/CP angles: Clear. No pneumothorax. Bones: No osseous abnormalities. Scoliosis. Soft tissues: No abnormalities. Tubes and lines: None. Other: None. IMPRESSION: No acute cardiopulmonary abnorm alities. at 0 915 Reported and signed by: Zach Leyva M.D. CC: Jose Moreno MD Technologist: Daksha Palacios Trnscrpt Data: 10/10/2018 (091 5) [email or web address] Orig Print D/T: S: 10/10/2018 (8050) PAGE 1 Signed Report URINALYSIS [id number] 09:13:00* Test Item Value Reference Range Interpretation Comments UA COLOR (test code = COLU) YELLOW YELLOW UA APPEARANCE (test code = APPU) CLEAR CLEAR UA GLUCOSE DIPSTICK (test code = DGLUU) norm mg/dL NEGATIVE UA BILIRUBIN DIPSTICK (test code = BILU) NEGATIVE mg/dL NEGATIVE UA KETONE DIPSTICK (test code = KETU) neg mg/dL NEGATIVE UA SPECIFIC GRAVITY (test code = SGU) 1.020 1.001-1.035 UA BLOOD DIPSTICK (test code = RAMSEY) neg Mitesh/uL NEGATIVE UA PH DIPSTICK (test code = MISSAEL) 6.0 5.0-8.0 UA PROTEIN DIPSTICK (test code = PROU) 15 (TRACE) mg/dL Neg-15 A UA UROBILINIOGEN DIPSTICK (test code = URO) norm mg/dL 0.0-0.2 UA NITRITE DIPSTICK (test code = CODI) NEGATIVE NEGATIVE UA LEUKOCYTE ESTERASE DIPSTICK (test code = LEUU) 25 Jody/uL (Tra ce) uL NEGATIVE A UA WBC (test code = WBCU) 0-1 per HPF 0-5 UA RBC (test code = RBCU) NONE SEEN per HPF 0-5 UA EPITHELIAL CELLS (test code = EPIU) Rare (0-1/hpf) per HPF Few UA BACTERIA (test code = BACU) TRACE per HPF NONE Urine Source? Clean CatchURINALYSIS [id number] 09:04:00* Test Item Value Reference Range Interpretation Comments UA COLOR (test code = COLU) YELLOW YELLOW UA APPEARANCE (test code = APPU) CLEAR UA GLUCOSE DIPSTICK (test code = DGLUU) norm mg/dL NEGATIVE UA BILIRUBIN DIPSTICK (test code = BILU) NEGATIVE mg/dL NEGATIVE UA KETONE DIPSTICK (test code = KETU) neg mg/dL NEGATIVE UA SPECIFIC GRAVITY (test code = SGU) 1.020 1.001-1.035 UA BLOOD DIPSTICK (test code = RAMSEY) neg Mitesh/uL NEGATIVE UA PH DIPSTICK (test code = MISSAEL) 6.0 5.0-8.0 UA PROTEIN DIPSTICK (test code = PROU) 15 (TRACE) mg/dL Neg-15 A UA UROBILINIOGEN DIPSTICK (test code = URO) norm mg/dL 0.0-0.2 UA NITRITE DIPSTICK (test code = CODI) NEGATIVE NEGATIVE UA LEUKOCYTE ESTERASE DIPSTICK (test code = LEUU) 25 Jody/uL (Tra ce) uL NEGATIVE A UA WBC (test code = WBCU) per HPF 0-5 UA RBC (test code = RBCU) per HPF 0-5 UA EPITHELIAL CELLS (test code = EPIU) per HPF Few UA BACTERIA (test code = BACU) per HPF NONE Urine Source? Clean CatchCBC W/O [id number] 09:04:00* Test Item Value Reference Range Interpretation Comments WHITE BLOOD CELL (test code = WBC) 4.9 K/mm3 4.5-12.5 N RED BLOOD CELL (test code = RBC) 4.22 mill/mm3 3.7-5.2 N HEMOGLOBIN (test code = HGB) 13.1 gram/dL 11.5-15.5 N HEMATOCRIT (test code = HCT) 39.3 % 36.0-46.0 N MEAN CELL VOLUME (test code = MCV) 93.1 fL 80-98 N MEAN CELL HGB (test code = MCH) 31.0 picogram 27.0-33.0 N MEAN CELL HGB CONCETRATION (test code = MCHC) 33.3 gram/dL 33.0-36. 0 N RED CELL DISTRIBUTION WIDTH (test code = RDW) 12.5 % 11.6-16. 2 N RED CELL DISTRIBUTION WIDTH SD (test code = RDW-SD) 43.1 fL 37 .0-51.0 N PLATELET COUNT (test code = PLT) 192 K/mm3 150-450 N MEAN PLATELET VOLUME (test code = MPV) 10.8 fL 6.7-11.0 N [facility] [id number] 11:56:001.9[facility] Ce[id number] 11:56:0025[facility] Cen[id number] 11:56:0098[facility] CenterJcjhlmltrOILDAOYSPZTO6657-50-11 11:56:003.2M LonxtzdjtESHQIKYTQTSU0706-11-58 11:56:005.9[facility] [id number] 11:56:0019 KxgyqsbmcVCILRBRLTLGI4993-63-09 11:56:007.9 [id number] 11:56:77908ZJ NtkcfochgCFVKKHBIKMJD7478-97-02 11:56:0011.8 KogfzcactASGYTISVUKSN4727-20-53 11:56:000.5[facility] [id number] 11:56:0081[facility] CenterLhvgugddiIGBSHQZQOEFC6057-49-51 11:56:000.54 PzlirkjruMKPMNKJGHMEH8734-49-40 11:56:003.8 EhkryckcsZLLRMXAXBACE8629-40-61 11:56:27703PP WlswcriwnVKLSRROIUNMU8055-43-66 11:56:0021 [place] HKFYNBGVPQDY8058-14-24 11:56:0018 QtbwzovlqVKFHJWTJAROM3027-75-36 11:56:000.8 SfqckdtmyMVSYMHHSFRCZ9472-85-11 11:56:002.7 KmyjujetoIHKZKMXEOFLM3153-54-73 11:56:0010 IuxnakjlwDZRTBLKLMDLH1208-99-33 11:56:78790EQ [facility] 2015-10-22 11:56:0075.9 LwbuuueisVIXJYQAPHH0909-44-36 11:56:0015.0[facility] TTIQYLCVSA7496-26-87 11:56:008.7 GyuylsvhxBTNTFIUUXA9310-16-74 11:56:000.1M ClcmdneyiIHIPWYDFLJ4638-23-28 11:56:000.3M BakiklhlrUVMJATADVN3312-60-39 11:56:007.3M IwqwqpexiYLNHLKMPXR8163-06-73 11:56:001.5 [facility] 2015-10-22 11:56:000.8 HeajhdgzrEGCXOURYUV0804-10-98 11:56:009.7[facility] KCFANQCLJG1380-95-43 11:56:003.66 MhxoeqpsuDRHJPYTFNU4957-44-44 11:56:0034.7 TakxrkvktCQVNYTMDOG6520-69-73 11:56:0094.9 QlxcnbsmbHFMBBZHPAG7393-02-12 11:56:00* Test Item Value Reference Range Interpretation Comments MCH (test code = MCH) 31.3 pg 27.0-31.0 PbwhbhfdaSOGZYNBBPH0892-85-28 11:56:0011.5 TuvcfwsrwDJCKPKAJCF6699-09-28 11:56:0033.0 LrihvgomwEGCCPPKROL6448-99-40 11:56:0012.9 [facility] 2015-10-22 11:56:76212GR DmybzyvgkSRLNVVMFWP6979-64-53 11:56:009.0[facility] CHEM KXLQQ6811-45-28 00:33:0083 [facility]M OZRSC6384-86-65 00:33:000.75 FkfxwnsbtGSLWQDMRPG8278-23-07 00:33:00* Test Item Value Reference Range Interpretation Comments PTT (test code = PTT) 22.5 s 22.9-35.8 [facility] CenterSizibubcxXQIQUUKIYR2777-40-96 00:[facility] 2015-10-15 22:25:00Negative (10/15/15 5:25 PM) EpbvwcuydYJZZYWVXZLHL5624-50-16 22:25:0012.1M LiazcsqklNNUBGEGSJMWM2071-74-00 22:25:0028 [facility] ICBGNJOSVLHY6683-25-71 22:25:003.6MH AmpgkphkeGPGMDQEDQGTK0091-46-24 22:25:001.1 VbvjuqbsqXCWBRPJYVMTV7641-85-22 22:25:0094 VyafxiislXZIWXYSBLYHY7284-02-59 22:25:008.5 OxxqdbucmEPUIODLILGTB7285-93-22 22:25:007.4[facility] QEGYPGZVLGNG9208-83-75 22:25:003.8 AysilwspeRJWRZLXQHHNI4584-37-38 22:25:0030 KwifpehwmVFFXTSOESKEH3714-89-88 22:25:0033 BqiraewajMXROFVTJLGDU5416-85-45 22:25:27525AB NweanwnepYXSGHKDMXPKD2383-61-76 22:25:000.3M [facility] YKKRNWGPMOUG1603-02-93 22:25:0017 KfczutlapXVRIAZOBTPWT1095-08-81 22:25:0082 SiftkifunHMOTEAVSQQKM8200-18-05 22:25:000.60 OwpgjsflgWPGGZMAXZGLR5990-99-27 22:25:38634XF ZzmfjhetmJYXTHODAKJSB6902-63-83 22:25:004.1M [facility] VIXPLHCLBTQE8707-73-79 22:25:0024 MwspnpknrUWNWUNXJMVLZ4650-63-81 22:25:11242 EtwmqlnmaJSEVTSRWSF7822-59-89 22:25:004.6M GectigmzzCEJTMDLTQS4943-58-01 22:25:007.2M DppugiftaZMAEXFXTJC4477-77-62 22:25:0045.1M [facility] 2015-10-15 22:25:0042.1M XxuqbmrumYSVZEQQHYJ4794-80-90 22:25:000.3M [facility] MJEAIFESBP1954-49-19 22:25:000.4MH QmawufskcRQEJZHOLZX4062-95-74 22:25:002.6[facility] HospitalYkmkqfjgcPQYFOLFOAH6838-18-53 22:25:001.0[facility] CenterEiapdpovtHFVJHTAMVA3986-08-20 22:25:002.4[facility] CenterJvvgrtjtxFIWFIBHXAW0347-29-07 22:25:000.1[facility] HospitalHE[facility] 2015-10-15 22:25:0094.7[facility] CenterIyalqachtNFKXAVBNJX0045-24-68 22:25:0040.4[facility] UVMFYEKEDB1642-58-47 22:25:0013.3[facility]st HospitalYuyihuoljAWFTPXBHYO2537-16-36 22:25:004.27[facility] CenterQuddllftyWDFIDPUUTH7596-43-15 22:25:005.7[facility] CenterAxvxjvvbpFSUZODHTJF1638-62-98 22:25:009.0[facility] CenterGsiuponulPNGPPRFRHG9124-83-21 22:25:0032.8[facility] 2015-10-15 22:25:00* Test Item Value Reference Range Interpretation Comments MCH (test code = MCH) 31.1 pg 27.0-31.0 [facility] CenterWrdwanpyeBFUWOBINDZ9528-45-41 22:25:49109RWSpring[facility] Medical CenterRtvsjjjykBTFIRKJSGC2133-02-56 22:25:0012.9[facility]
--- OUTSIDE RECORDS SUMMARY | 2019-11-01 16:48 | XMS REPORT | Summary of Care ---
Author Author [facility] Organization [facility] Address Unknown Phone Unavailable Encounter HQ Aleks_tristan(FIN) [id number] Date(s): 01/06/16 - 01/06/16 [facility] [address] [place] [address]- Discharge Disposition: Home or Self Care Attending [...] Skin Resolved cancer(Confirmed) 1Data migrated from [employer] on 01/21/15. 2Data migrated from [employer] on 01/21/15. Allergies, Adverse Reactions, Alerts Substance Reaction Severity Status cyclobenzaprine1 Active Dilaudid Active 1Data migrated from [employer] on 01/20/15. Originally documented as CYCLOBENZAPRINE HCL. [...]
--- OUTSIDE RECORDS SUMMARY | 2019-11-01 16:48 | XMS REPORT | Summary of Care ---
Author Author [facility] Address Unknown Phone Unavailable Encounter HQ Hazel(WEI) [id number] Date(s): 10/21/15 - 10/22/15 [facility] [address] [place] [address]- [phone] Discharge Disposition: Home Attending Physician: Chas Mendes MD Referring Physician: Chas Mendes MD Vital Signs 1 2 3 Most recent to oldest [Reference Range]: 154.94 cm (10/15/15 4:32 PM) Height 97.8 DegF (10/22/15 12:41 PM) 98.2 DegF (10/22/15 10:48 AM) 98.4 DegF (10/22/15 8:04 AM) Temperature Oral [96.4-99.1 DegF] 99/57 mmHg (10/22/15 12:41 PM) 103/62 mmHg (10/22/15 10:48 AM) 134/78 mmHg (10/22/15 8:04 AM) Blood Pressure [90-140/60-90 mmHg] 16 BRMIN (10/22/15 12:41 PM) 14 BRMIN (10/22/15 10:48 AM) 16 BRMIN (10/22/15 8:59 AM) Respiratory Rate [14-20 BRMIN] 58 bpm *LOW* (10/22/15 12:41 PM) 65 bpm (10/22/15 10:48 AM) 74 bpm (10/22/15 8:04 AM) Peripheral Pulse Rate [60-100 bpm] 84.091 kg (10/15/15 4:32 PM) Weight 35.03 m2 (10/15/15 4:32 PM) Body Mass Index Problem List Condition Effective Dates Status Health Status Informan t 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 2Data migrated from [employer] on 01/21/15. Allergies, Adverse Reactions, Alerts Substance Reaction Severity Status cyclobenzaprine1 Active Dilaudid Active 1Data migrated from [employer] on 01/20/15. Originally documented as CYCLOBENZAPRINE HCL. Medications acetaminophen (ANES) (ANES) Route: IV, Drug form: INJ, Start date: 10/21/15 12:46:00 CDT, Stop date: 6 13:46:00 CDT Start Date: 10/21/15 Stop Date: 10/21/15 Status: Completed bisacodyl 10 mg, 1 supp, Route: ME, Drug form: SUPP, Q12H, Dosing Weight 84.091, kg, PRN C onstipation, Start date: 10/21/15 15:48:00 CDT, Duration: 30 day, Stop date: 15:47:00 CDT Notes: (Same As: Dulcolax, Bisco-Lax) Start Date: 10/21/15 Stop Date: 10/22/15 Status: Discontinued ceFAZolin (ANES) (ANES) Route: IV, Drug form: INJ, Start date: 10/21/15 15:03:00 CDT, Stop date: 6 16:03:00 CDT Start Date: 10/21/15 Stop Date: 10/21/15 Status: Completed ceFAZolin (ANES) (ANES) Route: IV, Drug form: INJ, Start date: 10/21/15 12:06:00 CDT, Stop date: 6 13:06:00 CDT Start Date: 10/21/15 Stop Date: 10/21/15 Status: Completed dexamethasone (ANES) Route: IV, Drug form: INJ, ONCE, Stop date: 10/21/15 13:19:00 CDT Start Date: 10/21/15 Stop Date: 10/21/15 Status: Completed Dextrose 5% in Lactated Ringers IV 1,000 mL 1,000 mL, Rate: 125 ml/hr, Infuse over: 8 hr, Route: IV, Dosing Weight 84.091 kg , Total Volume: 1,000, Start date: 10/21/15 15:48:00 CDT, Duration: 30 day, Stop date: 11/20/15 15:47:00 CDT Start Date: 10/21/15 Stop Date: 10/22/15 Status: Discontinued docusate 100 mg, 1 cap, Route: PO, Drug form: CAP, BID, Dosing Weight 84.091, kg, PRN Con stipation, Start date: 10/21/15 15:48:00 CDT, Duration: 30 day, Stop date: 11/19 15:47:00 CDT Notes: (Same as: Colace) (Do Not Crush) Start Date: 10/21/15 Stop Date: 10/22/15 Status: Discontinued docusate sodium 100 mg oral capsule 100 mg = 1 cap, PO, BID, PRN Constipation, # 60 cap, 0 Refill(s) Start Date: 10/22/15 Status: Ordered enoxaparin 40 mg, 0.4 mL, Route: SUB-Q, Drug form: INJ, [id number], Dosing Weight 84.091, kg, Start date: 10/21/15 16:00:00 CDT, Duration: 30 day, Stop date: 11/20/15 9:00:00 CDT Notes: (Same as: Lovenox) Start Date: 10/21/15 Stop Date: 10/22/15 Status: Discontinued fentaNYL 25 microgram, Route: IVP, Q5Min, Dosing Weight 84.091, kg, PRN Pain Score 4-6, S tart date: 10/21/15 15:37:00 CDT, Duration: 4 doses or times, Stop date: Limited # of times Start Date: 10/21/15 Stop Date: 10/21/15 Status: Discontinued fentaNYL (ANES) Route: IV, Drug form: INJ, ONCE, Stop date: 10/21/15 12:35:00 CDT Start Date: 10/21/15 Stop Date: 10/21/15 Status: Completed fentaNYL (ANES) Route: IV, Drug form: INJ, ONCE, Stop date: 10/21/15 16:10:00 CDT Start Date: 10/21/15 Stop Date: 10/21/15 Status: Completed glycopyrrolate (ANES) Route: IV, Drug form: INJ, ONCE, Stop date: 10/21/15 13:03:00 CDT Start Date: 10/21/15 Stop Date: 10/21/15 Status: Completed hydrALAZINE 10 mg, Route: IVP, Q20Min, Dosing Weight 84.091, kg, PRN Elevated BP, Start date : 10/21/15 15:37:00 CDT, Duration: 2 doses or times, Stop date: Limited # of konstantin es Start Date: 10/21/15 Stop Date: 10/21/15 Status: Discontinued hydromorphone (ANES) Route: IV, Drug form: INJ, ONCE, Stop date: 10/21/15 13:55:00 CDT Start Date: 10/21/15 Stop Date: 10/21/15 Status: Completed HYDROmorphone 0.5mg/mL PRODUCTION LABORER (15mg/30 mL) 15 mg 15 mg, 30 mL, Route: IV, Initial Loading Dose: 0.4mg, PRODUCTION LABORER Dose: 0.2 mg, PRODUCTION LABORER Lock out: 10 minutes, Continuous Basal Rate: 0 mg, 4 Hour Limit (In MG): 6, Drug Form : INJ, Continuous, Start date: 10/21/15 16:00:00 CDT, Duration: 30 day, Stop kanwal e: 11/20/15... Notes: (Same as: Dilaudid) conc = 0.5 mg/mlHydromorphone PRODUCTION LABORER Dose: ;Isabel y: ;Basal: Start Date: 10/21/15 Stop Date: 10/22/15 Status: Discontinued Lactated Ringers Injection IV (ANES) (ANES) Route: IV, Total Volume: 1,000, Start date: 10/21/15 11:38:00 CDT, Stop date: 12:38:00 CDT Start Date: 10/21/15 Stop Date: 10/21/15 Status: Completed Lactated Ringers Injection IV 1000 mL 1,000 mL, Rate: 500 ml/hr, Infuse over: 2 hr, Route: IV, Dosing Weight 84.091 kg , Total Volume: 1,000, Start date: 10/21/15 15:37:00 CDT, Duration: 30 day, Stop date: 11/20/15 15:36:00 CDT Start Date: 10/21/15 Stop Date: 10/21/15 Status: Discontinued Lactated Ringers Injection IV 1000 mL 1,000 mL, Rate: 25 ml/hr, Infuse over: 40 hr, Route: IV, Dosing Weight 84.091 kg , Total Volume: 1,000, Start date: 10/21/15 11:29:00 CDT, Duration: 30 day, Stop date: 11/20/15 11:28:00 CDT Start Date: 10/21/15 Stop Date: 10/21/15 Status: Discontinued lidocaine (ANES) Route: IV, Drug form: INJ, ONCE, Stop date: 10/21/15 12:35:00 CDT Start Date: 10/21/15 Stop Date: 10/21/15 Status: Completed magnesium hydroxide 30 ml, Route: PO, Drug Form: SUSP, Dosing Weight 84.091, kg, Daily, PRN Constipa tion, Start date: 10/21/15 15:48:00 CDT, Duration: 30 day, Stop date: 11/20/15 5:47:00 CDT Notes: (Same as: Milk of Magnyumiko, MOM) Start Date: 10/21/15 Stop Date: 10/22/15 Status: Discontinued meperidine 12.5 mg, Route: IVP, Q30Min, Dosing Weight 84.091, kg, PRN Other -See Comment, F or shivering, Start date: 10/21/15 15:37:00 CDT, Duration: 2 doses or times, Sto p date: Limited # of times Start Date: 10/21/15 Stop Date: 10/21/15 Status: Discontinued metoclopramide (ANES) Route: IV, Drug form: INJ, ONCE, Stop date: 10/21/15 13:19:00 CDT Start Date: 10/21/15 Stop Date: 10/21/15 Status: Completed metoprolol 1 mg, Route: IVP, Q5Min, Dosing Weight 84.091, kg, PRN Other -See Comment, Start date: 10/21/15 15:37:00 CDT, Duration: 5 doses or times, Stop date: Limited # of times Start Date: 10/21/15 Stop Date: 10/21/15 Status: Discontinued metoprolol (ANES) Route: IV, Drug form: INJ, ONCE, Stop date: 10/21/15 15:51:00 CDT Start Date: 10/21/15 Stop Date: 10/21/15 Status: Completed midazolam (ANES) Route: IV, Drug form: SOLN, ONCE, Stop date: 10/21/15 12:35:00 CDT Start Date: 10/21/15 Stop Date: 10/21/15 Status: Completed morphine Sulfate 2 mg, Route: IVP, Q5Min, Dosing Weight 84.091, kg, PRN Pain Score 4-6, Start kanwal e: 10/21/15 15:37:00 CDT, Duration: 5 doses or times, Stop date: Limited # of ti mes Start Date: 10/21/15 Stop Date: 10/21/15 Status: Discontinued naloxone 0.04 mg, 0.1 mL, Route: IVP, Drug form: INJ, Q2MIN, Dosing Weight 84.091, kg, ME N Narcotic Reversal, Start date: 10/21/15 15:48:00 CDT, Duration: 30 day, Stop d ate: 11/20/15 15:47:00 CDT Notes: Same as Narcan Start Date: 10/21/15 Stop Date: 10/22/15 Status: Discontinued [place] 5/325 oral tablet 1 tab, Route: PO, Drug Form: TAB, Dosing Weight 84.091, kg, Q4H, PRN Pain Score 1-3, Start date: 10/21/15 15:54:00 CDT, Duration: 30 day, Stop date: 11/20/15 15 :53:00 CDT Notes: (Same as: [place] 325/5) Do not exceed 4gm/day of acetaminophen. Start Date: 10/21/15 Stop Date: 10/22/15 Status: Discontinued [place] 5/325 oral tablet 1 tab, PO, QID, PRN Pain Score 1-3, # 60 tab, 0 Refill(s), other Start Date: 10/22/15 Stop Date: 10/21/16 Status: Ordered [place] 5/325 oral tablet 2 tab, Route: PO, Drug Form: TAB, Dosing Weight 84.091, kg, Q4H, PRN Pain Score 4-6, Start date: 10/21/15 15:54:00 CDT, Duration: 30 day, Stop date: 11/20/15 15 :53:00 CDT Notes: (Same as: [place] 325/5) Do not exceed 4gm/day of acetaminophen. Start Date: 10/21/15 Stop Date: 10/22/15 Status: Discontinued ondansetron 4 mg, 2 mL, Route: IVP, Drug form: INJ, Q6H, Dosing Weight 84.091, kg, PRN Nause a & Vomiting, Start date: 10/21/15 15:48:00 CDT, Duration: 30 day, Stop date: 11/20/15 15:47:00 CDT Notes: (Same as: Ji) MEDICATION WASTE Product Size: 4 mgProduct Was lia: ___ mg Start Date: 10/21/15 Stop Date: 10/22/15 Status: Discontinued ondansetron (ANES) Route: IV, Drug form: INJ, ONCE, Stop date: 10/21/15 15:51:00 CDT Start Date: 10/21/15 Stop Date: 10/21/15 Status: Completed propofol (ANES) Route: IV, Drug form: INJ, ONCE, Stop date: 10/21/15 12:35:00 CDT Start Date: 10/21/15 Stop Date: 10/21/15 Status: Completed rocuronium (ANES) Route: IV, Drug form: INJ, ONCE, Stop date: 10/21/15 12:35:00 CDT Start Date: 10/21/15 Stop Date: 10/21/15 Status: Completed simethicone 160 mg, 2 tab, Route: PO, Drug form: CHEWTAB, Q2H, Dosing Weight 84.091, kg, PRN Gas, Start date: 10/21/15 15:48:00 CDT, Duration: 30 day, Stop date: 11/20/15 1 5:47:00 CDT Notes: (Same as: Dionisio) Start Date: 10/21/15 Stop Date: 10/22/15 Status: Discontinued Results BLOOD BANK RESULTS 1 2 3 Most recent to oldest [Reference Range]: A POS *Unknown* (10/15/15 5:25 PM) ABO/Rh Negative (10/15/15 5:25 PM) Antibody Scrn ELECTROLYTES 1 2 3 Most recent to oldest [Reference Range]: 142 mEq/L (10/22/15 6:56 AM) 138 mEq/L (10/15/15 5:25 PM) Sodium Lvl [135-145 mEq/L] 3.8 mEq/L (10/22/15 6:56 AM) 4.1 mEq/L (10/15/15 5:25 PM) Potassium Lvl [3.5-5.1 mEq/L] 109 mEq/L (10/22/15 6:56 AM) 106 mEq/L (10/15/15 5:25 PM) Chloride Lvl [95-109 mEq/L] 25 mEq/L (10/22/15 6:56 AM) 24 mEq/L (10/15/15 5:25 PM) CO2 [24-32 mEq/L] 11.8 mEq/L (10/22/15 6:56 AM) 12.1 mEq/L (10/15/15 5:25 PM) AGAP [10.0-20.0 mEq/L] CHEM PANEL 1 2 3 Most recent to oldest [Reference Range]: 0.54 mg/dL (10/22/15 6:56 AM) 0.75 mg/dL (10/21/15 7:33 PM) 0.60 mg/dL (10/15/15 5:25 PM) Creatinine Lvl [0.50-1.40 mg/dL] 98 mL/min/1.73m2 1 *NA* (10/22/15 6:56 AM) 83 mL/min/1.73m2 2 *NA* (10/21/15 7:33 PM) 94 mL/min/1.73m2 3 *NA* (10/15/15 5:25 PM) eGFR 10 mg/dL (10/22/15 6:56 AM) 17 mg/dL (10/15/15 5:25 PM) BUN [7-22 mg/dL] 19 (10/22/15 6:56 AM) 28 *HI* (10/15/15 5:25 PM) B/C Ratio [6-25] 152 mg/dL *HI* (10/22/15 6:56 AM) 82 mg/dL (10/15/15 5:25 PM) Glucose Lvl [70-99 mg/dL] 5.9 g/dL *LOW* (10/22/15 6:56 AM) 7.4 g/dL (10/15/15 5:25 PM) Total Protein [6.4-8.4 g/dL] 2.7 g/dL *LOW* (10/22/15 6:56 AM) 3.8 g/dL (10/15/15 5:25 PM) Albumin Lvl [3.5-5.0 g/dL] 3.2 g/dL (10/22/15 6:56 AM) 3.6 g/dL (10/15/15 5:25 PM) Globulin [2.0-4.0 g/dL] 0.8 (10/22/15 6:56 AM) 1.1 (10/15/15 5:25 PM) A/G Ratio [0.7-1.6] 7.9 mg/dL *LOW* (10/22/15 6:56 AM) 8.5 mg/dL (10/15/15 5:25 PM) Calcium Lvl [8.5-10.5 mg/dL] 1.9 mg/dL (10/22/15 6:56 AM) Magnesium Lvl [1.8-2.4 mg/dL] 21 unit/L (10/22/15 6:56 AM) 33 unit/L (10/15/15 5:25 PM) ALT [0-65 unit/L] 18 unit/L (10/22/15 6:56 AM) 30 unit/L (10/15/15 5:25 PM) AST [0-37 unit/L] 81 unit/L (10/22/15 6:56 AM) 101 unit/L (10/15/15 5:25 PM) Alk Phos [39-136 unit/L] 0.5 mg/dL (10/22/15 6:56 AM) 0.3 mg/dL (10/15/15 5:25 PM) Bili Total [0.2-1.3 mg/dL] 1Result Comment: The eGFR is calculated using the [...] from the National Kidney Disease Education Program ( NKDEP) which additionally recommends that when the eGFR is used in patients with extremes of body mass index for purposes of drug dosing, the eGFR should be mul tiplied by the estimated BMI. 2Result Comment: The eGFR is calculated using the [...] from the National Kidney Disease Education Program ( NKDEP) which additionally recommends that when the eGFR is used in patients with extremes of body mass index for purposes of drug dosing, the eGFR should be mul tiplied by the estimated BMI. 3Result Comment: The eGFR is calculated using the [...] from the National Kidney Disease Education Program ( NKDEP) which additionally recommends that when the eGFR is used in patients with extremes of body mass index for purposes of drug dosing, the eGFR should be mul tiplied by the estimated BMI. HEMATOLOGY 1 2 3 Most recent to oldest [Reference Range]: 9.7 K/CMM (10/22/15 6:56 AM) 5.7 K/CMM (10/15/15 5:25 PM) WBC [3.7-10.4 K/CMM] 3.66 M/CMM *LOW* (10/22/15 6:56 AM) 4.27 M/CMM (10/15/15 5:25 PM) RBC [4.20-5.40 M/CMM] 11.5 g/dL *LOW* (10/22/15 6:56 AM) 13.3 g/dL (10/15/15 5:25 PM) Hgb [12.0-16.0 g/dL] 34.7 % *LOW* (10/22/15 6:56 AM) 40.4 % (10/15/15 5:25 PM) Hct [36.0-48.0 %] 94.9 fL (10/22/15 6:56 AM) 94.7 fL (10/15/15 5:25 PM) MCV [80.0-98.0 fL] 31.3 pg *HI* (10/22/15 6:56 AM) 31.1 pg *HI* (10/15/15 5:25 PM) MCH [27.0-31.0 pg] 33.0 g/dL (10/22/15 6:56 AM) 32.8 g/dL (10/15/15 5:25 PM) MCHC [32.0-36.0 g/dL] 12.9 % (10/22/15 6:56 AM) 12.9 % (10/15/15 5:25 PM) RDW [11.5-14.5 %] 154 K/CMM (10/22/15 6:56 AM) 140 K/CMM (10/21/15 7:33 PM) 215 K/CMM (10/15/15 5:25 PM) Platelet [133-450 K/CMM] 9.0 fL (10/22/15 6:56 AM) 9.0 fL (10/15/15 5:25 PM) MPV [7.4-10.4 fL] 75.9 % *HI* (10/22/15 6:56 AM) 45.1 % (10/15/15 5:25 PM) Segs [45.0-75.0 %] 15.0 % *LOW* (10/22/15 6:56 AM) 42.1 % *HI* (10/15/15 5:25 PM) Lymphocytes [20.0-40.0 %] 8.7 % (10/22/15 6:56 AM) 7.2 % (10/15/15 5:25 PM) Monocytes [2.0-12.0 %] 0.1 % (10/22/15 6:56 AM) 4.6 % *HI* (10/15/15 5:25 PM) Eosinophils [0.0-4.0 %] 0.3 % (10/22/15 6:56 AM) 1.0 % (10/15/15 5:25 PM) Basophils [0.0-1.0 %] 7.3 K/CMM (10/22/15 6:56 AM) 2.6 K/CMM (10/15/15 5:25 PM) Segs-Bands # [1.5-8.1 K/CMM] 1.5 K/CMM (10/22/15 6:56 AM) 2.4 K/CMM (10/15/15 5:25 PM) Lymphocytes # [1.0-5.5 K/CMM] 0.8 K/CMM (10/22/15 6:56 AM) 0.4 K/CMM (10/15/15 5:25 PM) Monocytes # [0.0-0.8 K/CMM] 0.3 K/CMM (10/15/15 5:25 PM) Eosinophils # [0.0-0.5 K/CMM] 0.1 K/CMM (10/15/15 5:25 PM) Basophils # [0.0-0.2 K/CMM] 22.5 seconds *LOW* (10/21/15 7:33 PM) PTT [22.9-35.8 seconds] Immunizations No data available for this section [...] age: 24; Exposure to Tobacco Smoke None; Cigaret te Smoking Last 365 Days No; Reg Smoking Cessation Counseling No Assessment and Plan Extracted from: Title: Clinical Document Author: Madelaine Mcgowan Date: 10/22/15 Progress Note - Daily [facility] Completed: Thursday, OCTOBER 22, 2015, 08:41 by Madelaine Mcgowan MD RM: [id number] - 1D, SE [id number], WOLFGANG [id number] (: 1950) F Attending: Chas Mendes MDPhone: Service: Air Operations Manager Service Reason for Admission: UNK Working DRG: None Documented Code status: Full Code [Ordered]Current diet: Isolation: None Documented Allergies: cyclobenzaprine SUBJECTIVE Patient hungry No SOB/CP/CESAR No N/V/D/C Pain well controlled on PRODUCTION LABORER OBJECTIVE General- NAD, A&Ox3 CVS- RRR Chest- CTAB no wheezing Abdomen- Soft appropriately tender, +BS, incision CDI Extremities- no CCE Skin- No rashes or lesions appreciated 24hr Labs 10/21 0656 Magnesium Lvl1.9 Sodium Uva953 Potassium Lvl3.8 Chloride Cjr519 CO225 AGAP11.8 Glucose Bfh372 H Creatinine Lvl0.54 BUN10 B/C Ratio19 Total Protein5.9 L Albumin Lvl2.7 L Globulin3.2 A/G Ratio0.8 Calcium Lvl7.9 L ALT21 AST18 Alk Phos81 Bili Total0.5 eGFR98 WBC9.7 RBC3.66 L Hgb11.5 L Hct34.7 L MCV94.9 MCH31.3 H MCHC33.0 RDW12.9 Diiebkub319 MPV9.0 Segs75.9 H Monocytes8.7 Rxdtdyezmhd89.0 L Eosinophils0.1 Basophils0.3 Segs-Bands #7.3 Lymphocytes #1.5 Monocytes #0.8 10/20 1933 Creatinine Lvl0.75 eGFR83 Kzqvynnu829 PTT22.5 L 10/20 1010 Glucose POC87 [place] still necessary (Yes/No): Line still necessary (Yes/No): VitalsTmp(F)NyhxyRWHPHlZ4PZE7 10/21 03:[id number]/6016------ 10/20 22:48 60139--- 10/20 22:3298.496028/6416------ 10/20 21:40 100--- 10/20 19:3197.882225/7016------ 24 Hr Tmax: 98.4F (36.89c) at 10/20 17:4 2Vital Signs are the last 5 in the past 48 hours. DateWt(kg)Wt(lb)Ht(cm)Ht(in)Method 10/14 (initial) 84.09 185.00Measured 54.94 61.00Stated I&ORecordInOutBal 09/2423hr Tot 4668 1600 3068 09/2323hr Tot 0 0 0 Medications (21) Active Scheduled Meds (1): 10/21/15 enoxaparin 40 mg SUB-Q [id number] Unscheduled Meds: None PRN Meds (8): 10/21/15 acetaminophen-hydrocodone (Norc o 5/325 oral tablet) 1 tab PO Q4H 10/21/15 acetaminophen-hydrocodone (Norc o 5/325 oral tablet) 2 tab PO Q4H 10/21/15 bisacodyl 10 mg ME Q12H 10/21/15 docusate 100 mg PO BID [...] (ANES)) IV ONCE Continuous Infusions: None ASSESSMENT & EXAM 1) Pain- transition to PO meds 2) Pulm/CV-VSS, continue IS 3) Heme-Hg stable ,no sx of anemia. 4) GI-ADAT 5) -void trial today 6) PPX-IS, SCDs, progressive ambulation. Anticipate DC home today Madelaine Mcgowan MD Gynecologic Oncology Staff [phone] Extracted from: Title: TRAFFIC ENGINEERING DIRECTOR ONC Author: Chas Mendes MD te: 10/21/15 Reason For Visit WOLFGANG GURROLA is [...] regular diet. 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 Ms. Gurrola reports normal bowel and bladder function. She has experienced very minimal spotting on about 6 occasions since her LEEP in August 2015. Ms. Gurrola currently denies pain. She is a GOG PS 0, Karnofsky scale 90%. TRAFFIC ENGINEERING DIRECTOR history: Menarche age 10 / regular q [...] 3 TIMES DAILY NEEDED; Therapy: 14Jun2014 to (Evaluate:[id number]) Requested for: 17Jun2014; Last Rx:17Jun2014; Status: ACTIVE - Retrospective Authorization Ordered Meloxicam 15 MG Oral Tablet; TAKE 1 TABLET Daily PRN PAIN. TAKE WITH FOOD; Therapy: 01May2014 to (Evaluate:30Jul2014) Requested for: 01May2014; Last Rx:01May2014; Status: ACTIVE - Retrospective Authorization Ordered Sulfamethoxazole-TMP [...] and sensory function grossly intact, butcranial nerves 2- 12 were intact. Psychiatric: oriented to person, place, [...] damage to the surrounding bowel, bladder and ureters. The patient was counseled regarding the measures [...]
[2019-11-01] MEDS ORDERED: CEFEPIME 1GM/NS 0.9% 50 ML 50 ML IV STA (18:15)
[2019-11-01 18:53] LABS: BASOPHILS # (AUTO) 0.1 (0.0-0.1); BASOPHILS % 0.4 % (0.0-1.0); EOSINOPHILS # (AUTO) 0.1 (0.0-0.4); EOSINOPHILS % 0.5 % (0.0-6.0); HEMATOCRIT 44.3 % (34.2-44.1); HEMOGLOBIN 14.3 g/dL (12.0-16.0); LYMPHOCYTES # (AUTO) 1.4 (1.0-3.2); LYMPHOCYTES % 11.2 % (18.0-39.1); MEAN CORPUSCULAR HEMOGLOBIN 30.3 pg (28-32); MEAN CORPUSCULAR HGB CONC 32.3 g/dL (31-35); MEAN CORPUSCULAR VOLUME 93.9 fL (81-99); MONOCYTES % 7.8 % (4.4-11.3); NEUTROPHILS # (AUTO) 9.7 (2.1-6.9); NEUTROPHILS % 79.8 % (38.7-80.0); PLATELET COUNT 280 x10e3/uL (140-360); RED BLOOD COUNT 4.72 x10e6/uL (3.6-5.1)
--- NOTE | 2019-11-01 18:53 | Emergency Department Note ---
History of Present Illnes History of Present Illness Chief Complaint: General Medicine Complaints History of Present Illness This is a 69 year old female arrived to the ED with left arm swelling and infection, patient states she was seen in urgent care and they told her to come to emergency department. Patient states area started as a bump and gradually worsened over the past several days. Historian: Patient, Family Member Arrival Mode: Car Mediator Required: No Onset (how long ago): day(s) Severity: moderate Onset quality: gradual Duration (how long): day(s) Timing of current episode: constant Progression: worsening Context: recent illness, recent immobilization, trauma/injury, hx of DVT/PE, non-compliance w/ medications Relieving factors: none Exacerbating factors: none Associated symptoms: denies other symptoms Treatments prior to arrival: none Past Medical/Family History Physician Review I have reviewed the patient's past medical and family history. Any updates have been documented here. 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 Social History Smoking Cessation: Never Smoker Any Illegal Drug Use: No TB Exposure/Symptoms: No Family History Family history of heart diseas: Yes Other Last Tetanus: NEEDS Review of Systems Review of Systems Constitutional: no symptoms EENTM: no symptoms Cardiovascular: no symptoms Respiratory: no symptoms Gastrointestinal: no symptoms Genitourinary: no symptoms Musculoskeletal: other (skin abscess, infection, the latest) Neurological: no symptoms Psychological: no symptoms Endocrine: no symptoms Hematological/Lymphatic: no symptoms Review of other systems All other systems reviewed and negative. Physical Exam Related Data Allergies: Coded Allergies: cyclobenzaprine (Verified Allergy, Unknown, 11/01/19) Triage Vital Signs Vital Signs Date Time Temp Pulse Resp B/P (MAP) Pulse Ox O2 Delivery O2 Flow Rate FiO2 11/01/19 18:09 97.8 100 16 137/94 96 Vital signs reviewed: Yes Physical Exam CONSTITUTIONAL Constitutional: well-developed, well-nourished HENT HENT: normocephalic, atraumatic, oropharynx clear/moist, nose normal HENT L/R: left ext ear normal, right ext ear normal EYES Eyes: PERRL, conjunctivae normal NECK Neck: ROM normal PULMONARY Pulmonary: effort normal, breath sounds normal CARDIOVASCULAR Cardiovascular: regular rhythm, heart sounds normal, capillary refill normal, normal rate GASTROINTESTINAL Abdominal: soft, nontender, bowel sounds normal GENITOURINARY Genitourinary: exam deferred SKIN Skin: warm, dry MUSCULOSKELETAL Musculoskeletal: other (marked area of cellulitis noted over left forearm superimposed upon a large abscess that is at least 15 cm in length, central area shows necrosis with purulent foul-smelling discharge) NEUROLOGICAL Neurological: alert, oriented x 3, no gross motor or sensory deficits PSYCHOLOGICAL Psychological: mood/affect normal, judgement normal Results Laboratory Laboratory Laboratory Tests Test 11/01/19 18:20 Lab results reviewed: Yes Laboratory comments Laboratory Tests Test 11/02/19 08:25 11/02/19 01:00 White Blood Count 9.19 x10e3/uL (4.8-10.8) Red Blood Count 4.11 x10e6/uL (3.6-5.1) Hemoglobin 12.6 g/dL (12.0-16.0) Hematocrit 38.3 % (34.2-44.1) Mean Corpuscular Volume 93.2 fL (81-99) Mean Corpuscular Hemoglobin 30.7 pg (28-32) Mean Corpuscular Hemoglobin Concent 32.9 g/dL (31-35) Red Cell Distribution Width 12.1 % (11.7-14.4) Platelet Count 247 x10e3/uL (140-360) Neutrophils (%) (Auto) 72.4 % (38.7-80.0) Lymphocytes (%) (Auto) 16.4 % (18.0-39.1) Monocytes (%) (Auto) 9.6 % (4.4-11.3) Eosinophils (%) (Auto) 0.9 % (0.0-6.0) Basophils (%) (Auto) 0.3 % (0.0-1.0) Neutrophils # (Auto) 6.7 (2.1-6.9) Lymphocytes # (Auto) 1.5 (1.0-3.2) Monocytes # (Auto) 0.9 (0.2-0.8) Eosinophils # (Auto) 0.1 (0.0-0.4) Basophils # (Auto) 0.0 (0.0-0.1) Absolute Immature Granulocyte (auto 0.04 x10e3/uL (0-0.1) Sodium Level 137 mmol/L (136-145) Potassium Level 3.5 mmol/L (3.5-5.1) Chloride Level 104 mmol/L (98-107) Carbon Dioxide Level 21 mmol/L (22-29) Anion Gap 15.5 mmol/L (8-16) Blood Urea Nitrogen 18 mg/dL (7-26) Creatinine 0.64 mg/dL (0.57-1.11) Estimat Glomerular Filtration Rate > 60 ML/MIN (60-) BUN/Creatinine Ratio 28 (6-25) Glucose Level 97 mg/dL (74-118) Calcium Level 8.9 mg/dL (8.4-10.2) Total Bilirubin 1.1 mg/dL (0.2-1.2) Aspartate Amino Transf (AST/SGOT) 13 IU/L (5-34) Alanine Aminotransferase (ALT/SGPT) 12 IU/L (0-55) Alkaline Phosphatase 76 IU/L (40-150) Total Protein 6.8 g/dL (6.5-8.1) Albumin 2.8 g/dL (3.5-5.0) Globulin 4.0 g/dL (2.3-3.5) Albumin/Globulin Ratio 0.7 (0.8-2.0) Imaging Imaging results reviewed: Yes Impressions IMPRESSION: Diffuse subcutaneous edema, particularly of the dorsal aspect of the forearm, with possible soft tissue gas. No acute underlying osseous abnormality. Critical Care Time Subsequent provider I assumed direction of critical care for this patient from another provider of my specialty. Assessment & Plan Assessment & Plan Final Impression: (1) CELLULITIS OF LEFT UPPER LIMB (2) CELLULITIS OF LEFT UPPER LIMB Assessment & Plan CBC, CMP, lactic acid Broad spectrum antibiotics Will possibly require surgery consult for washout General surgery paged, awaiting callback, will sign out to medicine team to follow up official consult Last Vital Signs Date Time Temp Pulse Resp B/P (MAP) Pulse Ox O2 Delivery O2 Flow Rate FiO2 11/01/19 18:09 97.8 100 16 137/94 96 Home Meds No Active Prescriptions or Reported Meds Medications in the ED Vancomycin HCl 250 ml @ 167 mls/hr ONCE ONCE IV ; Start 11/01/19 at 19:30; Stop 11/01/19 at 20:59 Cefepime HCl 50 ml @ 100 mls/hr Q24H STAT IV ; Start 11/01/19 at 18:15; Stop 11/01/19 at 18:44; Status DC SERGIO ARMSTRONG DO Nov 01, 2019 18:53
[2019-11-01 19:07] LABS: ALANINE AMINOTRANSFERASE 12 IU/L (0-55); ALBUMIN 3.4 g/dL (3.5-5.0); ALBUMIN/GLOBULIN RATIO 0.7 (0.8-2.0); ALKALINE PHOSPHATASE 94 IU/L (40-150); BLOOD UREA NITROGEN 22 mg/dL (7-26); BUN/CREATININE RATIO 28 (6-25); CALCIUM 9.7 mg/dL (8.4-10.2); CARBON DIOXIDE 21 mmol/L (22-29); CHLORIDE 101 mmol/L (98-107); CREATININE, SERUM 0.79 mg/dL (0.57-1.11); EST GLOMERULAR FILTRATION RATE > 60 ML/MIN (60-); GLUCOSE 85 mg/dL (74-118); SODIUM 136 mmol/L (136-145)
[2019-11-01] MEDS ORDERED: VANCOMYCIN 1GM/NS 250 ML 250 ML IV ONE ×2 (19:30→22:45)
--- NOTE | 2019-11-01 19:31 | Diagnostic Imaging Report ---
FOREARM LEFT 2 VIEW - 3 views HISTORY: Pain COMPARISON: None available. FINDINGS: Bones: No acute displaced fracture. Osseous alignment is within normal limits. Joints: Degenerative osteoarthrosis of the first carpometacarpal joint. Soft tissues: Diffuse subcutaneous edema, particularly of the dorsal aspect of the forearm, with possible soft tissue gas. Soft tissue calcifications in the mid forearm dorsally may represent phleboliths. IMPRESSION: Diffuse subcutaneous edema, particularly of the dorsal aspect of the forearm, with possible soft tissue gas. No acute underlying osseous abnormality. Signed by: Dr. Daniella Brennan M.D. on 11/01/2019 7:28 PM
--- OUTSIDE RECORDS SUMMARY | 2019-11-01 19:57 | XMS REPORT | Continuity of Care Document ---
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 [facility] [place] Benign neoplasm of vertebral column, exc luding sacrum and coccyx (disorder) Active 08/22/2014 Problem 04/02/2016 Data migrated from Snapchat on 01/21/15. [facility] [place] OPIChastity Donald Urinary incontinence (finding) Resolved Problem 08/2015 [facility] [place] DU Rich[place] d History of malignant neoplasm of cervix (situation) Resolved Problem 04/02/2016 [facility] [place] [facility] Donald Hypercholesterolemia (disorder) Resolved Problem 08/2015 [facility] [place] OPIChastity [place] d Osteoarthritis (disorder) Reso lved Problem 08/2015 [facility] [place] OPID [place] Obesity (disorder) Active Problem 04/02/2016 [facility] Malignant neoplasm of skin (disorder) Resolved Problem 04/02/2016 [facility] [place] OPI D Odilon CARCINOMA IN SITU OF CERVIX, UNSPECIFIED Active [facility] Medications Medication Details Route Status Patient Instructions Ordering Provider Order Date Source docusate sodium 100 mg oral capsule 100 mg = 1 cap, PO, BID, PRN Constipation, # 60 cap, 0 Refill(s) Active 10/22/2015 [facility] Acetaminophen 325 MG / Hydrocodone Alejandra trate 5 MG Oral Tablet [Eleele 5/325] 1 tab, PO, QID, PRN Pain Score 1-3, # 60 tab, 0 Refill(s), other Active 10/22/2015 [facility] fentaNYL (ANES) Route: IV, Yuri g form: INJ, ONCE, Stop date: 10/21/15 16:10:00 CDT Inactive 10/21/2015 [facility] Enoxaparin Notes: (Same as: Lo venox) No Longer Active 10/21/2015 [facility] Hydromorphone Notes: (Same as: Dilaudid) conc = 0.5 mg/ml Hydromorphone SENIOR CONSULTANT Dose: ;Delay: ;Basal: No Longer Active 10/21/2015 [facility] Acetaminophen 325 MG / Hydrocodone Alejandra trate 5 MG Oral Tablet [Eleele 5/325] Notes: (Same as: Eleele 325/5) Do not ex ceed 4gm/day of acetaminophen. No Longer Activ e 10/21/2015 [facility] metoprolol (ANES) Route: IV, D rug form: INJ, ONCE, Stop date: 10/21/15 15:51:00 CDT Inactive 10/21/2015 [facility] ondansetron (ANES) Route: IV, Drug form: INJ, ONCE, Stop date: 10/21/15 15:51:00 CDT Inactive 10/21/2015 [facility] Docusate Notes: (Same as: Cola ce) (Do Not Crush) No Longer Active 10/21/2015 [facility] Ondansetron Notes: (Same as: Blair mendez) MEDICATION WASTE Product Size: 4 mg Product Wasted: ___ mg No Longer Active 10/21/2015 [facility] Calcium Chloride 0.002 MEQ/ML / Glucose 50 MG/ML / Potassium Chloride 0.004 MEQ/ML / Sodium Chloride 0.147 MEQ/ML Injectable Solution 1,000 mL, Rate: 125 ml/hr, Infuse over: 8 hr, Route: IV, Dosing Weight 84.091 kg, Total Volume: 1,000, Start date: 10/21/15 15:48:00 CDT, Duration: 30 day, Stop date: 11/20/15 15:47:00 CDT No Longer Active 10/21/2015 [facility] Simethicone Notes: (Same as: Hammad ylicon) No Longer Active 10/21/2015 [facility] Bisacodyl Notes: (Same As: Dul colax, Bisco-Lax) No Longer Active 10/21/2015 [facility] Magnesium Hydroxide Notes: ([facility] as: Milk of Magnesia, MOM) No Longer Active 10/21/2015 [facility] Naloxone Notes: Same as Narcan No Longer Active 10/21/2015 [facility] Calcium Chloride 0.0014 MEQ/ML / Potassi um Chloride 0.004 MEQ/ML / Sodium Chloride 0.103 MEQ/ML / Sodium Lactate 0.028 MEQ/ML Injectable Solution 1,000 mL, Rate: 500 ml/hr, Infuse over: 2 hr, Route: IV, Dosing Weight 84.091 kg, Total Volume: 1,000, Start date: 10/21/15 15:37:00 CDT, Duration: 30 day, Stop date: 11/20/15 15:36:00 CDT Inactive 10/21/2015 [facility] Morphine 2 mg, Route: IVP, Q5M in, Dosing Weight 84.091, kg, PRN Pain Score 4-6, Start date: 10/21/15 15:37:00 CDT, Duration: 5 doses or times, Stop date: Limited # of times Inactive 10/21/2015 [facility] Hydralazine 10 mg, Route: IVP, Q20Min, Dosing Weight 84.091, kg, PRN Elevated BP, Start date: 10/21/15 15:37:00 CDT, Duration: 2 doses or times, Stop date: Limited # of times Inactive 10/21/2015 [facility] Metoprolol 1 mg, Route: IVP, Q 5Min, Dosing Weight 84.091, kg, PRN Other -See Comment, Start date: 10/21/15 15:37:00 CDT, Duration: 5 doses or times, Stop date: Limited # of times Inactive 10/21/2015 [facility] Meperidine 12.5 mg, Route: IVP , Q30Min, Dosing Weight 84.091, kg, PRN Other -See Comment, For shivering, Start date: 10/21/15 15:37:00 CDT, Duration: 2 doses or times, Stop date: Limited # of times Inactive 10/21/2015 [facility] Fentanyl 25 microgram, Route: IVP, Q5Min, Dosing Weight 84.091, kg, PRN Pain Score 4-6, Start date: 10/21/15 15:37:00 CDT, Duration: 4 doses or times, Stop date: Limited # of times Inactive 10/21/2015 [facility] ceFAZolin (ANES) (ANES) Route: IV, Drug form: INJ, Start date: 10/21/15 15:03:00 CDT, Stop date: 10/21/15 16:03:00 CDT Inactive 10/21/2015 [facility] hydromorphone (ANES) Route: IV , Drug form: INJ, ONCE, Stop date: 10/21/15 13:55:00 CDT Inactive 10/21/2015 [facility] dexamethasone (ANES) Route: IV , Drug form: INJ, ONCE, Stop date: 10/21/15 13:19:00 CDT Inactive 10/21/2015 [facility] metoclopramide (ANES) Route: I V, Drug form: INJ, ONCE, Stop date: 10/21/15 13:19:00 CDT Inactive 10/21/2015 [facility] glycopyrrolate (ANES) Route: I V, Drug form: INJ, ONCE, Stop date: 10/21/15 13:03:00 CDT Inactive 10/21/2015 [facility] acetaminophen (ANES) (ANES) Ro kletsel dehe wintun: IV, Drug form: INJ, Start date: 10/21/15 12:46:00 CDT, Stop date: 10/21/15 13:46:00 CDT Inactive 10/21/2015 [facility] rocuronium (ANES) Route: IV, D rug form: INJ, ONCE, Stop date: 10/21/15 12:35:00 CDT Inactive 10/21/2015 [facility] fentaNYL (ANES) Route: IV, Yuri g form: INJ, ONCE, Stop date: 10/21/15 12:35:00 CDT Inactive 10/21/2015 [facility] lidocaine (ANES) Route: IV, Dr ug form: INJ, ONCE, Stop date: 10/21/15 12:35:00 CDT Inactive 10/21/2015 [facility] propofol (ANES) Route: IV, Yuri g form: INJ, ONCE, Stop date: 10/21/15 12:35:00 CDT Inactive 10/21/2015 [facility] midazolam (ANES) Route: IV, Dr ug form: SOLN, ONCE, Stop date: 10/21/15 12:35:00 CDT Inactive 10/21/2015 [facility] ceFAZolin (ANES) (ANES) Route: IV, Drug form: INJ, Start date: 10/21/15 12:06:00 CDT, Stop date: 10/21/15 13:06:00 CDT Inactive 10/21/2015 [facility] Lactated Ringers Injection IV (ANES) (ANES) Route: IV, Total Volume: 1,000, Start date: 10/21/15 11:38:00 CDT, Stop date: 10/21/15 12:38:00 CDT Inactive 10/21/2015 [facility] Calcium Chloride 0.0014 MEQ/ML / Potassi um Chloride 0.004 MEQ/ML / Sodium Chloride 0.103 MEQ/ML / Sodium Lactate 0.028 MEQ/ML Injectable Solution 1,000 mL, Rate: 25 ml/hr, Infuse over: 4 0 hr, Route: IV, Dosing Weight 84.091 kg, Total Volume: 1,000, Start date: 10/21/15 11:29:00 CDT, Duration: 30 day, Stop date: 11/20/15 11:28:00 CDT Inactive 10/21/2015 [facility] AMLODIPINE BESY-BENAZEPRIL HCL 5-10 MG CAPS 1 TAB DAILY Active 08/22/2014 [facility] DIAZEPAM 5 MG TABS 1 TAB DAILY No Longer Active 08/22/2014 [facility] AMLODIPINE BESY-BENAZEPRIL HCL 5-10 MG CAPS 1 TAB DAILY Active 08/22/2014 [facility] AMLODIPINE BESY-BENAZEPRIL HCL 5-10 MG CAPS 1 TAB DAILY Active 08/22/2014 [facility] Allergies, Adverse Reactions, Alerts Substance Category Reaction Severity Reaction type Status Date Reported Comments Source CYCLOBENZAPRINE HCL Drug aller gy CYCLOBENZA PAMELA HCL 08/22/2014 [facility] cyclobenzaprine<sup>1</sup> As sertion Drug aller gy Active 08/22/2014 Data migrated from Snapchat on 01/20/15. Originally documented as CYCLOBENZAPRINE HCL. [facility] Dilaudid Assertion Drug allergy Active [facility] Immunizations No Data Provided for This Section Results Order Name Results Value Reference Range Date Interpretation Comments Source CHEM PANEL Magnesium Lvl 1.9 1.8 - 2.4 10/22/2015 [facility] ELECTROLYTES CO2 25 24 - 32 10/22/2015 [facility] ELECTROLYTES eGFR 98 10/22/2015 Result Comment: The [...] should be multiplied by the estimated BMI. [facility] ELECTROLYTES Globulin 3.2 2.0 - 4.0 10/22/2015 [facility] ELECTROLYTES Total Protein 5.9 6.4 - 8.4 10/22/2015 [facility] ELECTROLYTES B/C Ratio 19 6 - 25 10/22/2015 [facility] ELECTROLYTES Calcium Lvl 7.9 8.5 - 10.5 10/22/2015 [facility] ELECTROLYTES Chloride Lvl 109 95 - 109 10/22/2015 [facility] ELECTROLYTES AGAP 11.8 10.0 - 20.0 10/22/2015 [facility] ELECTROLYTES Bili Total 0.5 0.2 - 1.3 10/22/2015 [facility] ELECTROLYTES Alk Phos 81 39 - 136 10/22/2015 [facility] ELECTROLYTES Creatinine Lvl 0.5 4 0.50 - 1.40 10/22/2015 [facility] ELECTROLYTES Potassium Lvl 3.8 3.5 - 5.1 10/22/2015 [facility] ELECTROLYTES Sodium Lvl 142 135 - 145 10/22/2015 [facility] ELECTROLYTES ALT 21 0 - 65 10/22/2015 [facility] ELECTROLYTES AST 18 0 - 37 10/22/2015 [facility] ELECTROLYTES A/G Ratio 0.8 0.7 - 1.6 10/22/2015 [facility] ELECTROLYTES Albumin Lvl 2.7 3.5 - 5.0 10/22/2015 [facility] ELECTROLYTES BUN 10 7 - 22 10/22/2015 [facility] ELECTROLYTES Glucose Lvl 152 70 - 99 10/22/2015 [facility] HEMATOLOGY Segs 75.9 45.0 - 75.0 10/22/2015 [facility] HEMATOLOGY Lymphocytes 15.0 20.0 - 40.0 10/22/2015 [facility] Monocytes 8.7 2.0 - 12.0 10/22/2015 [facility] HEMATOLOGY Eosinophils 0.1 0.0 - 4.0 10/22/2015 [facility] HEMATOLOGY Basophils 0.3 0.0 - 1.0 10/22/2015 [facility] Segs-Bands # 7.3 1.5 - 8.1 10/22/2015 [facility] Lymphocytes # 1.5 1.0 - 5.5 10/22/2015 [facility] Monocytes # 0.8 0.0 - 0.8 10/22/2015 [facility] WBC 9.7 3.7 - 10.4 10/22/2015 [facility] RBC 3.66 4.20 - 5.40 10/22/2015 [facility] Hct 34.7 36.0 - 48.0 10/22/2015 [facility] MCV 94.9 80.0 - 98.0 10/22/2015 [facility] MCH 31.3 27.0 - 31.0 10/22/2015 [facility] Hgb 11.5 12.0 - 16.0 10/22/2015 [facility] MCHC 33.0 32.0 - 36.0 10/22/2015 [facility] RDW 12.9 11.5 - 14.5 10/22/2015 [facility] Platelet 154 133 - 450 10/22/2015 [facility] MPV 9.0 7.4 - 10.4 10/22/2015 [facility] CHEM PANEL eGFR 83 10/22/2015 Result Comment: [...] should be multiplied by the estimated BMI. [facility] CHEM PANEL Creatinine Lvl 0.75 0.50 - 1.40 10/22/2015 [facility] HEMATOLOGY PTT 22.5 22.9 - 35.8 10/22/2015 [facility] HEMATOLOGY Platelet 140 133 - 450 10/22/2015 [facility] BLOOD BANK RESULTS ABO/Rh A POS 10/15/2015 [facility] BLOOD BANK RESULTS Antibody Scrn Negative (10/15/15 5:25 PM) 10/15/2015 [facility] ELECTROLYTES AGAP 12.1 10.0 - 20.0 10/15/2015 [facility] ELECTROLYTES B/C Ratio 28 6 - 25 10/15/2015 [facility] ELECTROLYTES Globulin 3.6 2.0 - 4.0 10/15/2015 [facility] ELECTROLYTES A/G Ratio 1.1 0.7 - 1.6 10/15/2015 [facility] ELECTROLYTES eGFR 94 10/15/2015 Result Comment: The [...] should be multiplied by the estimated BMI. [facility] ELECTROLYTES Calcium Lvl 8.5 8.5 - 10.5 10/15/2015 [facility] ELECTROLYTES Total Protein 7.4 6.4 - 8.4 10/15/2015 [facility] ELECTROLYTES Albumin Lvl 3.8 3.5 - 5.0 10/15/2015 [facility] ELECTROLYTES AST 30 0 - 37 10/15/2015 [...] HEMATOLOGY MCHC 32.8 32.0 - 36.0 10/15/2015 [facility] HEMATOLOGY MCH 31.1 27.0 - 31.0 10/15/2015 [facility] HEMATOLOGY Platelet 215 133 - 450 10/15/2015 [facility] HEMATOLOGY RDW 12.9 11.5 - 14.5 10/15/2015 [facility] Pathology Reports No Data Provided for This [...] Comments Source Systolic (mm Hg) 99 10/22/2015 [facility] Diastolic (mm Hg) 57 10/22/2015 [facility] Respitory Rate 16 10/22/2015 [facility] Heart Rate 58 10/22/2015 [facility] Temperature Oral (F) 97.8 F 10/22/2015 [facility] Respitory Rate 14 10/22/2015 [facility] Systolic (mm Hg) 103 10/22/2015 [facility] Diastolic (mm Hg) 62 10/22/2015 [facility] Temperature Oral (F) 98.2 F 10/22/2015 [facility] Heart Rate 65 10/22/2015 [facility] Respitory Rate 16 10/22/2015 [facility] Heart Rate 74 10/22/2015 [facility] Systolic (mm Hg) 134 10/22/2015 [facility] Diastolic (mm Hg) 78 10/22/2015 [facility] Temperature Oral (F) 98.4 F 10/22/2015 [facility] Weight 84.091 10/15/2015 [facility] Height 154.94 cm 10/15/2015 [facility] BMI Calculated 35.03 10/15/2015 [facility] Weight 167.0 01/30/2015 [facility] Height 60 0 01/30/2015 [facility] Temperature Oral (F) 99.1 F 01/30/2015 [facility] Heart Rate 74 01/30/2015 [facility] Systolic (mm Hg) 124 01/30/2015 [facility] Diastolic (mm Hg) 78 01/30/2015 [facility] Weight 173.2 08/22/2014 [facility] Height 60 0 08/22/2014 [facility] Temperature Oral (F) 98.7 F 08/22/2014 [facility] Heart Rate 98 08/22/2014 [facility] Systolic (mm Hg) 141 08/22/2014 [facility] Diastolic (mm Hg) 85 08/22/2014 [facility] Encounters Location Location Details Encounter Type Encounter Number Reason For Visit Attending Provider ADM Date DC Date Status Source [facility] Office Visit [id number] Tc Naik MD 08/22/2014 08/22/2014 [facility] Office Visit [id number] Tc Naik MD 11/21/2014 11/21/2014 [facility] [place] [facility] Di[facility] [id number] Russel Momin 01/24/2015 01/25/2015 [facility] Office Visit [id number] Tc Naik MD 01/30/2015 01/30/2015 [facility] OBS Observation Patient [id number] Chas Duran IRENE 10/21/2015 10/22/2015 [facility] Outpatient [id number] RUSSEL MOMIN 12/04/2015 [facility] [place] [facility] [id number] Russel Momin Jr 01/06/2016 01/07/2016 [facility] Outpatient [id number] RUSSEL MOMIN 01/08/2016 [facility] [place] [facility] [id number] Russel Momin Jr 03/30/2016 03/31/2016 [facility] Outpatient [id number] RUSSEL MOMIN 04/01/2016 [facility] Procedures Procedure Code Date Perfomer Comments Source MRI of cervical spine<sup>1</sup> [id number] 07/20/2014 mri cervical w/wo [facility], [facility] Cauterization of uterus [id number] [facility], [place] Dilation and curettage of uterus [id number] [facility] [place] [facility] [place] Procedure on ankle joint [id number] [facility], [place] Assessment and Plan Assessment and Plan Date Source Extracted from:Title: Clinical Document Author: Madelaine Mcgowan MD Date: 10/22/15 Progress Note - Daily [facility] Completed: Thursday, OCTOBER 22, 2015, 08:41 by Madelaine Mcgowan MD RM: 422 - 1D, SE C4B WOLFGANG GURROLA 65y (: 1950) F Attending: Chas Mendes MD Service: Nurse Prn Service Reason for Admission: UNK Working DRG: None Documented Code status: Full Code [Ordered] Current diet: Isolation: None Documented Allergies: cyclobenzaprine SUBJECTIVE Patient hungry No SOB/CP/CESAR No N/V/D/C Pain well controlled on SENIOR CONSULTANT OBJECTIVE General- NAD, A&Ox3 [facility]- RRR Chest- [...] Meds (1): 10/21/15 enoxaparin 40 mg SUB-Q [id number] Unscheduled Meds: None PRN Meds (8): 10/21/15 acetaminophen-hydrocodone (Norc o 5/325 oral tablet) 1 tab PO Q4H 10/21/15 acetaminophen-hydrocodone (Norc o 5/325 oral tablet) 2 tab PO Q4H 10/21/15 bisacodyl 10 mg PA Q12H 10/21/15 docusate 100 mg PO BID [...] today Madelaine Mcgowan MD Gynecologic Oncology Staff [phone] Extracted from:Title: 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 Ms. Gurrola reports normal bowel and bladder function. She has experienced very minimal spotting on about 6 occasions since her LEEP in August 2015. Ms. Gurrola currently denies pain. She is a GOG PS 0, Karnofsky scale 90%. 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 TAKE WITH FOOD; Therapy: 01May2014 to (Evaluate:30Jul2014) Requested for: [id number]; Last Rx:[id number]; Status: ACTIVE - Retrospective Authorization Ordered Sulfamethoxazole-TMP [...] post-operative evaluation. Desiree Duke, PGY 4 10/22/2015 [facility] Plan of Care No Data Provided for [...] No; Reg Smoking Cessation Counseling No 10/15/2015 [facility] Family History No Data Provided for This Section Advance Directives No Data Provided for This Section Functional Status No Data Provided for This Section
--- OUTSIDE RECORDS SUMMARY | 2019-11-01 19:57 | XMS REPORT | Continuity of Care Document ---
Author Author [facility] t Organization [facility] Address [address] [place] [address] Phone Unavailable Care Team Providers Care Development Officer Name Role Phone Karen ARMSTRONG Attphys Unavailable BALJEET DURAN M.D. 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 Problem Resolved [facility] History of hypertension History of hypertension Problem Resolved [facility] History of hypothyroidism History of hypothyroidism Problem Resolved [facility] Fracture of ankle, bimalleolar, open Fracture of ankle, bima lleolar, open Problem Active [facility] Encounter for follow-up surveillance of cervical cance r Encounter for follow-up surveillance of cervical cancer Problem Active [facility] Pelvic pain in female Pelvic pain in female Problem Active [facility] Breast cancer screening Breast cancer screening Problem Active [facility] Osteoporosis, post-menopausal Osteoporosis, post-menopausal Problem Active [facility] Urinary incontinence (finding) Urinary incontinence (finding) Resolved Problem 04/02/2016 [facility] Problem Resolved 2016-04-02 00:07:58 Tamika Hernandez Hypercholesterolemia (disorder) Hypercholesterolemia (disorder) Resolved Problem 04/02/2016 [facility] Problem Resolved 2016-04-02 00:07:58 Tamika Hernandez Osteoarthritis (disorder) Oste oarthritis (disorder) Resolved Problem 04/02/2016 [facility] Problem Resolved 2016-04-02 00:07:58 Tamiko Hernandez Malignant neoplasm of skin (disorder) Malignant neoplasm of skin (disorder) Resolved Problem 04/02/2016 [facility] Problem Resolved 2016-04-02 00:07:58 Tamiko Hernandez Obesity (disorder) Obes ity (disorder) Active Problem 04/02/2016 [facility] Problem Active 2016-04-02 00:07:58 Tamiko Hernandez CARCINOMA IN SITU OF CERVIX, UNSPECIFIED CARCINOMA IN SITU OF CERVIX, UNSPECIFIED Active [facility] Active 2015-10-29 17:23:00 Tamiko Hernandez Allergies, Adverse Reactions, Alerts Allergy Name Allergy Type Status Severity Reaction(s) Onset Date Inacti ve Date Treating Clinician Comments Source cyclobenzaprine DA Active U 2018-10-10 00:00:00 [facility] cyclobenzaprine<sup>1</sup> cyclobenzaprine<sup>1</sup> Active 2014-08-22 05:00:00 [facility] CYCLOBENZAPRINE HCL CYCLOBENZAPRINE HCL Active 2014-08-22 0 0:00:00 [facility] Dilaudid Dilaudid Active [facility] Family History Family Member Diagnosis Comments Start Date Stop Date Source Mother Family history of History of hysterectomy [facility] Social History Social Habit Start Date Stop Date Quantity Comments Source Social History 2015-10-15 21:44:06 2015-10-15 21:44:06 Tamiko Hernandez Smoking Status Start Date Stop Date Source Former smoker [facility] Medications Ordered Medication Name Filled Medication Name Start Date Stop Da te Current Medication? Ordering Clinician Indication Dosage Frequency Signature (SIG) Comments Components Source docusate sodium 100 mg oral capsule 2015-10-22 12:47:00 Yes 100 mg = 1 cap, PO, BID, PRN Constipation, # 60 cap, 0 Refill(s) Tamiko [place] Acetaminophen 325 MG / Hydrocodone Bitartrate 5 MG Oral Tabl et [[place] 5/325] 2015-10-22 12:47:00 Yes 1 tab, PO, QID, PRN Pain Score 1-3, # 60 tab, 0 Refill(s), other [facility] fentaNYL (ANES) 2015-10-21 21:10:00 No Route: IV, Drug form: INJ, ONCE, Stop date: 10/21/15 16:10:00 CDT emoriann Hernandez Enoxaparin 2015-10-21 21:00:00 No Notes: (S levar as: Lovenox) Tamiko David Hydromorphone 2015-10-21 21:00:00 No Notes: (Same as: Dilaudid) conc = 0.5 mg/ml Hydromorphone AUTOMOTIVE GLAZIER Dose: ;Delay: ;Basal: Tamiko Hernandez Acetaminophen 325 MG / Hydrocodone Bitartrate 5 MG Oral Tabl et [[place] 5/325] 2015-10-21 20:54:00 No Notes: (Same as: [place] 325/5) Do not exceed 4gm/day of acetaminophen. Tamiko musa metoprolol (COLTS) 2015-10-21 20:51:00 No Route: IV, Drug form: INJ, ONCE, Stop date: 10/21/15 15:51:00 CDT haylee Yatesann ondansetron (ANES) 2015-10-21 20:51:00 No Route: IV, Drug form: INJ, ONCE, Stop date: 10/21/15 15:51:00 [facility] 2015-10-21 20:48:00 No Notes: (Same as: Colace) (Do Not Crush) Tamiko Hernandez Ondansetron 2015-10-21 20:48:00 No Notes: (Same as: Ji) MEDICATION WASTE Product Size: 4 mg Product Wasted: ___ mg [facility] Calcium Chloride 0.002 MEQ/ML / Glucose 50 MG/ML / Potassium Chloride 0.004 MEQ/ML / Sodium Chloride 0.147 MEQ/ML Injectable Solution 20 13-10-23 20:48:00 No 1,000 mL, Rate : 125 ml/hr, Infuse over: 8 hr, Route: IV, Dosing Weight 84.091 kg, Total Volume: 1,000, Start date: 10/21/15 15:48:00 CDT, Duration: 30 day, Stop date: 11/20/15 15:47:00 CDT [facility] Simethicone 2015-10-21 20:48:00 No Notes: ( Same as: Mylicon) [facility] Bisacodyl 2015-10-21 20:48:00 No Notes: (Same As: Dulcolax, Bisco-Lax) [facility] Magnesium Hydroxide 2015-10-21 20:48:00 No Notes: (Same as: Milk of Magnesia, MOM) Tamiko Hernandez Naloxone 2015-10-21 20:48:00 No Notes: Same as Narcan [facility] Calcium Chloride 0.0014 MEQ/ML / Potassi um Chloride 0.004 MEQ/ML / Sodium Chloride 0.103 MEQ/ML / Sodium Lactate 0.028 MEQ/ML Injectable Solution 2015-10-21 20:37:00 No 1,000 mL, Rate: 500 ml/hr, Infuse over: 2 hr, Route: IV, Dosing Weight 84.091 kg, Total Volume: 1,000, Start date: 10/21/15 15:37:00 CDT, Duration: 30 day, Stop date: 11/20/15 15:36:00 CDT [facility] Morphine 2015-10-21 20:37:00 No 2 mg, Route: IVP, Q5Min, Dosing Weight 84.091, kg, PRN Pain Score 4-6, Start date: 10/21/15 15:37:00 CDT, Duration: 5 doses or times, Stop date: Limited # of times [facility] Hydralazine 2015-10-21 20:37:00 No 10 mg, Route: IVP, Q20Min, Dosing Weight 84.091, kg, PRN Elevated BP, Start date: 10/21/15 15:37:00 CDT, Duration: 2 doses or times, Stop date: Limited # of times [facility] Metoprolol 2015-10-21 20:37:00 No 1 mg, Route: IVP, Q5Min, Dosing Weight 84.091, kg, PRN Other -See Comment, Start date: 10/21/15 15:37:00 CDT, Duration: 5 doses or times, Stop date: Limited # of times [facility] Meperidine 2015-10-21 20:37:00 No 12.5 mg, Route: IVP, Q30Min, Dosing Weight 84.091, kg, PRN Other -See Comment, For shivering, Start date: 10/21/15 15:37:00 CDT, Duration: 2 doses or times, Stop date: Limited # of times [facility] Fentanyl 2015-10-21 20:37:00 No 25 microgram, Route: IVP, Q5Min, Dosing Weight 84.091, kg, PRN Pain Score 4-6, Start date: 10/21/15 15:37:00 CDT, Duration: 4 doses or times, Stop date: Limited # of times [facility] ceFAZolin (ANES) (ANES) 2015-10-21 20:03:00 No Route: IV, Drug form: INJ, Start date: 10/21/15 15:03:00 CDT, Stop date: 10/21/15 16:03:00 CDT [facility] hydromorphone ([facility]) 2015-10-21 18:55:00 No Route: IV, Drug form: INJ, ONCE, Stop date: 10/21/15 13:55:00 CDT [facility] dexamethasone ([facility]) 2015-10-21 18:19:00 No Route: IV, Drug form: INJ, ONCE, Stop date: 10/21/15 13:19:00 CDT [facility] metoclopramide ([facility]) 2015-10-21 18:19:00 No Route: IV, Drug form: INJ, ONCE, Stop date: 10/21/15 13:19:00 CDT [facility] glycopyrrolate ([facility]) 2015-10-21 18:03:00 No Route: IV, Drug form: INJ, ONCE, Stop date: 10/21/15 13:03:00 CDT [facility] acetaminophen ([facility]) ([facility]) 2015-10-21 17:46:00 No Route: IV, Drug form: INJ, Start date: 10/21/15 12:46:00 CDT, Stop date: 10/21/15 13:46:00 CDT [facility] rocuronium ([facility]) 2015-10-21 17:35:00 No Route: IV, Drug form: INJ, ONCE, Stop date: 10/21/15 12:35:00 CDT [facility] fentaNYL ([facility]) 2015-10-21 17:35:00 No Route: IV, Drug form: INJ, ONCE, Stop date: 10/21/15 12:35:00 [facility] 2015-10-21 17:35:00 No Route: IV, Drug form: INJ, ONCE, Stop date: 10/21/15 12:35:00 CDT [facility] propofol ([facility]) 2015-10-21 17:35:00 No Route: IV, Drug form: INJ, ONCE, Stop date: 10/21/15 12:35:00 CDT [facility] midazolam ([facility]) 2015-10-21 17:35:00 No Route: IV, Drug form: SOLN, ONCE, Stop date: 10/21/15 12:35:00 CDT Hammad Hernandez ceFAZolin (ANES) (ANES) 2015-10-21 17:06:00 No Route: IV, Drug form: INJ, Start date: 10/21/15 12:06:00 CDT, Stop date: 10/21/15 13:06:00 CDT Tamiko Hernandez Lactated Ringers Injection IV (ANES) (ANES) 2015-10-21 16:38:00 No Route: IV, Total Volume: 1,000, Start date: 10/21/15 11:38:00 CDT, Stop date: 10/21/15 12:38:00 CDT Tamiko Hernandez Calcium Chloride 0.0014 MEQ/ML / Potassi um Chloride 0.004 MEQ/ML / Sodium Chloride 0.103 MEQ/ML / Sodium Lactate 0.028 MEQ/ML Injectable Solution 2015-10-21 16:29:00 No 1,000 mL, Rate: 25 ml/hr, Infuse over: 40 hr, Route: IV, Dosing Weight 84.091 kg, Total Volume: 1,000, Start date: 10/21/15 11:29:00 CDT, Duration: 30 day, Stop date: 11/20/15 11:28:00 CDT Tamiko Hernandez AMLODIPINE BESY-BENAZEPRIL HCL 5-10 MG CAPS 2014-08-22 00:00:00 Yes 1 TAB DAILY [facility] DIAZEPAM 5 MG TABS 2014-08-22 00:00:00 No 1 TAB DAILY [facility] AMLODIPINE BESY-BENAZEPRIL HCL 5-10 MG CAPS 2014-08-22 00:00:00 Yes 1 TAB DAILY [facility] AMLODIPINE BESY-BENAZEPRIL HCL 5-10 MG CAPS 2014-08-22 00:00:00 Yes 1 TAB DAILY Tamiko Hernandez Vital Signs Vital Name Observation Time Observation Value Comments Source BP Systolic 2018-11-27 13:56:00 133 mm[Hg] Location: RUE; Positi on: Sitting [facility] BP Diastolic 2018-11-27 13:56:00 79 mm[Hg] Location: RUE; Positi on: Sitting [facility] Height 2018-11-27 13:56:00 154.51 cm [facility] Weight 2018-11-27 13:56:00 85.89 kg [facility] Body Mass Index Calculated 2018-11-27 13:56:00 35.98 kg/m2 [facility] Temperature 2018-11-27 13:56:00 98.9 [degF] Method: Oral [facility] Heart Rate 2018-11-27 13:56:00 71 /min [facility] Systolic (mm Hg) 2015-10-22 17:41:00 Raza rial [place] Diastolic (mm Hg) 2015-10-22 17:41:00 Mem orial [facility] Respitory Rate 2015-10-22 17:41:00 [facility] al [facility] Heart Rate 2015-10-22 17:41:00 [facility] Temperature Oral (F) 2015-10-22 17:41:00 97.8 F [facility] Respitory Rate 2015-10-22 15:48:00 Memori al [place] Systolic (mm Hg) 2015-10-22 15:48:00 Raza rial David Diastolic (mm Hg) 2015-10-22 15:48:00 Mem o[facility] [place] Temperature Oral (F) 2015-10-22 15:48:00 98.2 F [facility] [place] Heart Rate 2015-10-22 15:48:00 [facility] [place] Respitory Rate 2015-10-22 13:59:00 Memori al [facility] Heart Rate 2015-10-22 13:04:00 [facility] Systolic (mm Hg) 2015-10-22 13:04:00 Raza rial David Diastolic (mm Hg) 2015-10-22 13:04:00 Mem orial [place] Temperature Oral (F) 2015-10-22 13:04:00 98.4 F [facility] Weight 2015-10-15 21:32:00 [facility] Height 2015-10-15 21:32:00 154.94 cm [facility] [place] BMI Calculated 2015-10-15 21:32:00 Memori al [facility] Weight 2015-01-30 18:47:40 [facility] Height 2015-01-30 18:47:40 [facility] [place] Temperature Oral (F) 2015-01-30 18:47:40 99.1 F [facility] Heart Rate 2015-01-30 18:47:40 [facility] Systolic (mm Hg) 2015-01-30 18:47:40 Raza rial David Diastolic (mm Hg) 2015-01-30 18:47:40 Mem [facility] [place] Weight 2014-08-22 16:24:11 [facility] [place] Height 2014-08-22 16:24:11 [facility] Temperature Oral (F) 2014-08-22 16:24:11 98.7 F [facility] Heart Rate 2014-08-22 16:24:11 [facility] [place] Systolic (mm Hg) 2014-08-22 16:24:11 Raza rial David Diastolic (mm Hg) 2014-08-22 16:24:11 [facility] [place] Procedures Procedure Date / Time Performed Performing Clinician Erica perez MA Digital Mammo Screening James [id number] 2018-11-27 00:00:00 [facility] [O] Dexa Scan ([employer] [facility]) 144777 0064-07-01 00:00:00 [facility] MRI of cervical spine<sup>1</sup> 2014-07-20 06:00:00 Tamiko Hernandez History of Laminectomy Excise Intraspina l Tumor Intradural, Extramedullary, Cervical [facility] History of Ankle Repair [facility] Cauterization of uterus [facility] [place] Dilation and curettage of uterus [facility] [place] Procedure on ankle joint Memoria l [facility] Encounters Start Date/Time End Date/Time [facility] Source 2018-11-27 13:00:00 2018-11-27 13:00:00 Appointment; BALJEET DURAN M.D. LUCCI, JOSEPH, M.D. [facility] Gynecologic Oncology - [facility] [id number] [facility] 2016-03-30 10:27:00 2016-03-30 23:59:00 Outpatient Russel Elizabeth [id number] 2016-01-06 10:21:00 2016-01-06 23:59:00 Outpatient Russel Elizabeth [id number] 2015-10-21 15:52:00 2015-10-22 16:00:00 Outpatient RogerAndreea lyonony [facility] [id number] 2015-01-24 14:29:00 2015-01-24 23:59:00 Outpatient Russel Elizabeth [id number] Results Test Description Test Time Test Comments Results Result Comments Source FOREARM LEFT 2 VIEW 2019-11-01 19:26:00 [place] [address] Patient Name: WOLFGANG GURROLA MR #: [id number] : 1950 Age/Sex: 69/F Req #: [id number] Adm Physician: Ordered by: SERGIO ARMSTRONG DO Report #: [id number] Location: ER Room/Bed: Procedure: [id number] DX/FOREARM LEFT 2 VIEW Exam Date: 11/01/19 Exam Time: 1650 REPORT STATUS: Signed FOREARM LEFT 2 VIEW - 3 views HISTORY: Pain COMPARISON: None available. FINDINGS: Bones: No acute displaced fracture. Osseous alignment is within normal limits. Joints: Degenerative osteoarthrosis of the first carpometacarpal joint. Soft tissues: Diffuse subcutaneous edema, particularly of the dorsal aspect of the forearm, with possible soft tissue gas. Soft tissue calcifications in the mid forearm dorsally may represent phleboliths. IMPRESSION: Diffuse subcutaneous edema, particularly of the dorsal aspect of the forearm, with possible soft tissue gas. No acute underlying osseous abnormality. Signed by: Rivas ReavesD. on 11/01/2019 7:28 PM Dictated By: ALEJANDRINA MCLAUGHLIN MD, MD 27 Transcribed By: CECE on 11/01/191927 COPY TO: SERGIO ARMSTRONG DO BASIC METABOLIC PANEL 2018-10-10 09:36:00 Test Item [...] CA) 8.0 mg/dL 8.4-10.2 L HEPATIC FUNCTION [id number] 09:36:00* Test Item Value Reference Range Interpretation [...] code = ALKP) 108 U/L 38-126 N [id number] 09:36:00* Test Item Value Reference Range Interpretation Comments LIPASE (test code = LIP) 160 U/L 128-270 N [id number] 09:36:00* Test Item Value Reference Range Interpretation Comments TROPONIN-I (test code = TROPI) <0.015 ng/mL 0.00-0.056 N - XR CHEST 1 [id number] 09:15:00 Name: WOLFGANG GURROLA [facility] : 1950 Age/S:68 /F [address] [facility] Unit#:[id number] Loc: [place] [address] Phys: Jose Moreno MD Dis Date: PHONE #: [phone] Status: REG ER FAX #: [phone] Exam Date: 10/10/2018 Reason: Abdominal Pain EXAMS: CPT CODE: [id number] XR CHEST 1 V 79156 TECHNIQUE: Single view chest COMPARISON: None provided. [...] Daksha Palacios Trnscrpt Data: 10/10/2018 (091 5) [email or web address] Orig Print D/T: S: 10/10/2018 (8263) PAGE 1 Signed Report URINALYSIS [id number] 09:13:00* Test Item Value Reference Range Interpretation [...] per HPF NONE Urine Source? Clean CatchURINALYSIS [id number] 09:04:00* Test Item Value Reference Range Interpretation [...] HPF NONE Urine Source? Clean CatchCBC W/O [id number] 09:04:00* Test Item Value Reference Range Interpretation [...] code = MPV) 10.8 fL 6.7-11.0 N CHEM [id number] 11:56:001.9[facility] UumofllHSBXWEAJGEQO8887-15-75 11:56:00 25[facility] KybldqlEWTUSFBJADPA9270-98-73 11:56:0098[facility] HermannELECTROLYTES 2015-10-22 11:56:003.2[facility] EgbccjcPPMFTKOKUVAT6092-20-61 11:56:005.9[facility] SzaanuvLGBARZCRKUEZ9946-69-40 11:56:0019[facility] SrwkxogJOTCNBVIRDXH2167-81-45 11:56:007.9[facility] AutyziqHXJIPKARYMSY4909-94-43 11:56:07232Hyvvawtm [place] DSWBRCMDUAZG3820-53-31 11:56:0011.8[facility] XizkfvpFPSNVSHTKRIS0731-48-72 11:56:000.5[facility] QrqmimtRDBHGBTDBTJE3465-62-93 11:56:0081[facility] VMPOLQGDPREK0088-87-18 11:56:000.54[facility] HsptcdlVGRXELYBCDFW9510-95-21 11:56:003.8[facility] AhnicfoYEZRPKTTQWNR9748-83-35 11:56:92084Vxiacnep [place] GGZCDYBUTPRE0342-13-68 11:56:0021[facility] AnkwlsbSSQEZHCGEDEV4942-54-06 11:56:00 18[facility] DmqbclyYYINFWGPIPAQ2672-72-63 11:56:000.8[facility] HermannELECTROLYTES 2015-10-22 11:56:002.7[facility] StjqhcxVVJSDYDUBOCH7914-46-83 11:56:0010[facility] BjbjeeqFNHKXCHFGSXW1268-74-65 11:56:64374Wefcgufh IzltzqeRLGHIHLSBF2330-75-40 11:56:0075.9[facility] AkttxknGNWNYECVDA7110-99-81 11:56:0015.0[facility] [place] ZGOGQLZCSD2926-38-72 11:56:008.7[facility] MoxojgdNMCTADLOVG5951-41-99 11:56:000.1 [facility] EozmoguBCFRLMOBVH8940-59-48 11:56:000.3[facility] HermannHEMATOLOGY 2015-10-22 11:56:007.3[facility] KeoegbuRHTIFRBGUQ8846-16-86 11:56:001.5[facility] RaucughCJZPPLYSOI6395-98-98 11:56:000.8[facility] QmnbympZZWLVPZJGQ1139-81-33 11:56:009.7[facility] QavrtltIZSERLYFVF0068-92-56 11:56:003.66[facility] [place] VDRAQXKXCD8734-17-21 11:56:0034.7[facility] XsiazucWJMWAUNDQZ7741-68-53 11:56:00 94.9[facility] TkqienvYMHSOXHZZE1322-26-33 11:56:00* Test Item Value Reference Range Interpretation Comments MCH (test code = MCH) 31.3 pg 27.0-31.0 [facility] PijrivtOOOFUDCXJE4456-35-53 11:56:0011.5[facility] HermannHEMATOLOGY 2015-10-22 11:56:0033.0[facility] SotxotbOMFRCVINIO9198-55-38 11:56:0012.9[facility] EhgkmjbCHWPWKYAAD0790-88-99 11:56:38829Iqpyzewa IeqtdljXERBEDZYZQ4734-83-84 11:56:009.0[facility] HermannCHEM CPPVD3077-32-66 00:33:0083[facility] HermannCHEM LZNHR0768-69-62 00:33:000.75[facility] GxhjlpsPIUMCCKDAG1784-06-10 00:33:00* Test Item Value Reference Range Interpretation Comments PTT (test code = PTT) 22.5 s 22.9-35.8 [facility] LnvtsnsDOYCEHZRUF5581-46-33 00:33:37317[facility] HermannBLOOD BANK URKIZRX2591-20-91 22:25:00Negative (10/15/15 5:25 PM)[facility]ann[facility]LECTROLYTES 2015-10-15 22:25:0012.1[facility] EkwrhtgWPMWZZNNBKRV9073-77-75 22:25:0028[facility] GxlurziZSVUVJWNHOFQ6347-04-78 22:25:003.6[facility] YxnqrohDZPRMUTBGSLO8590-77-52 22:25:001.1[facility] UhubnweVXRIQQZVAJSE7505-59-43 22:25:0094[facility] TSLYVYQPUAKW7153-95-89 22:25:008.5[facility] FawdpuiIUQEOVPZMMLP4055-25-45 22:25:007.4[facility] QivfxuvGUJVLSIJIWNQ0856-85-35 22:25:003.8[facility] JQZEYPRCNWOL0688-12-09 22:25:0030[facility] XkmqbxbLLNMFKZHFXPA5940-47-00 22:25:00 33[facility] IbycnxeXUTEHWKOAZLN0629-31-39 22:25:50058Stuideex HermannELECTROLYTES 2015-10-15 22:25:000.3[facility] PazjmwhAAWRXYHOKHHH6215-23-84 22:25:0017[facility] TffulboRLIQPQOUSXCK5368-84-47 22:25:0082[facility] YkiwxhpTRORVMCFUIYT4041-41-78 22:25:000.60[facility] JkdcddiHADNFLNLLNZK1382-75-82 22:25:46690Kuanbxed [place] UEOBEJKSLTSL7538-74-39 22:25:004.1[facility] UtxuyumZUEBSWZSQROS2810-19-29 22:25:0024[facility] JognjelWTOSKQSYVEQE5326-23-38 22:25:94101Evtyexwx David LKVYFWPTBC1347-70-52 22:25:004.6[facility] XxafxamXOOVZXXECZ3330-70-66 22:25:007.2 [facility] OqlclupCKWUOCGGJK5602-13-58 22:25:0045.1[facility] HermannHEMATOLOGY 2015-10-15 22:25:0042.1[facility] DvnvmrjTJWOPEZPNP9259-17-57 22:25:000.3[facility] TquftpyGSMDEUVRJX1467-85-51 22:25:000.4[facility] UbqfulgLZONZZXSMO7058-39-02 22:25:002.6[facility] PstucbjEJSNIPOGIW6971-57-93 22:25:001.0[facility] [place] PQDFIXFGQX4224-86-75 22:25:002.4[facility] KstkuucIXKPWHVCOD3877-71-86 22:25:000.1 [facility] RqkopheCMXARHTOKJ5492-41-97 22:25:0094.7[facility] HermannHEMATOLOGY 2015-10-15 22:25:0040.4[facility] GnsrxtvHXOBIYXXAA9865-97-28 22:25:0013.3[facility] WyyamzsXDAWXUBRJY8857-76-15 22:25:004.27[facility] RgdwdslRETRERVUXO6450-98-90 22:25:005.7[facility] LzwcuckQQAJVOLGGT4857-41-68 22:25:009.0[facility] [place] PJKZCBPQPZ2706-70-54 22:25:0032.8Memoripr TwidfduHGUKJKTCGG6816-64-01 22:25:00* Test Item Value Reference Range Interpretation Comments MCH (test code = MCH) 31.1 pg 27.0-31.0 [facility]villeKwwadywOLXSCAGLPU5435-09-04 22:25:50206FnrlxwqoThe [facility] CenterHEMATOLOGY 2015-10-15 22:25:0012.9[facility]
[2019-11-01 21:15] LABS: BILIRUBIN,URINE MODERATE (NEGATIVE); CLARITY,URINE SL CLOUDY (CLEAR); COLOR,URINE YELLOW (YELLOW); KETONES,URINE 2+ (NEGATIVE); LEUKOCYTE ESTERASE ,URINE TRACE (NEGATIVE); NITRITE,URINE NEGATIVE (NEGATIVE); PROTEIN,URINE DIPSTICK TRACE (NEGATIVE); URINE UROBILINOGEN 4 mg/dL (0.2 - 1)
[2019-11-01 21:25] LABS: AMORPHOUS SEDIMENT,URINE MODERATE (FEW); BACTERIA,URINE MODERATE /HPF; EPITHELIAL CELLS,URINE FEW /LPF; HYALINE CASTS 0-1 (0-1); MUCUS,URINE MODERATE (RARE); WBC,URINE (MAN) 0-5 /HPF (0-5)
[2019-11-01] MEDS: CEFEPIME 1GM/NS 0.9% 50 ML 50 ML IV SCH (22:45)
[2019-11-02] VITALS (9 sets, daily range): BP systolic 104–145; BP diastolic 66–77
--- NOTE | 2019-11-02 03:15 | NUR ---
RECEIVED PATIENT FROM ER IN STABLE CONDITION AOX4, NO SIGNS OF DISTRESS NOTED. WOUND NOTED ON LEFT FOREARM, IT IS REDDENED AND WRAPPED, NO DRAINAGE. PATIENT VOICES NO PAIN AT THIS TIME AND IS RESTING COMFORTABLY IN BED. BED IS IN LOWEST POSITION, BOTH SIDE RAILS ARE UP, CALL LIGHT IS WITHIN EASY REACH, WILL CONTINUE TO MONITOR.
[2019-11-02 09:31] LABS: BASOPHILS % 0.3 % (0.0-1.0); EOSINOPHILS # (AUTO) 0.1 (0.0-0.4); EOSINOPHILS % 0.9 % (0.0-6.0); HEMATOCRIT 38.3 % (34.2-44.1); HEMOGLOBIN 12.6 g/dL (12.0-16.0); LYMPHOCYTES # (AUTO) 1.5 (1.0-3.2); LYMPHOCYTES % 16.4 % (18.0-39.1); MEAN CORPUSCULAR HEMOGLOBIN 30.7 pg (28-32); MEAN CORPUSCULAR HGB CONC 32.9 g/dL (31-35); MEAN CORPUSCULAR VOLUME 93.2 fL (81-99); MONOCYTES # (AUTO) 0.9 (0.2-0.8); MONOCYTES % 9.6 % (4.4-11.3); NEUTROPHILS # (AUTO) 6.7 (2.1-6.9); NEUTROPHILS % 72.4 % (38.7-80.0); PLATELET COUNT 247 x10e3/uL (140-360); RED BLOOD COUNT 4.11 x10e6/uL (3.6-5.1); RED CELL DISTRIBUTION WIDTH 12.1 % (11.7-14.4)
[2019-11-02 09:55] LABS: ALANINE AMINOTRANSFERASE 12 IU/L (0-55); ALBUMIN 2.8 g/dL (3.5-5.0); ALBUMIN/GLOBULIN RATIO 0.7 (0.8-2.0); ALKALINE PHOSPHATASE 76 IU/L (40-150); ANION GAP 15.5 mmol/L (8-16); BLOOD UREA NITROGEN 18 mg/dL (7-26); BUN/CREATININE RATIO 28 (6-25); CALCIUM 8.9 mg/dL (8.4-10.2); CARBON DIOXIDE 21 mmol/L (22-29); CHLORIDE 104 mmol/L (98-107); CREATININE, SERUM 0.64 mg/dL (0.57-1.11); EST GLOMERULAR FILTRATION RATE > 60 ML/MIN (60-); GLUCOSE 97 mg/dL (74-118); POTASSIUM 3.5 mmol/L (3.5-5.1); SODIUM 137 mmol/L (136-145)
--- NOTE | 2019-11-02 16:44 | Diagnostic Imaging Report ---
TECHNIQUE: Magnetic resonance imaging of the left forearm was performed WITHOUT injected contrast. HISTORY: Pain COMPARISON: None available. FINDINGS: Bone marrow signal is normal. No edema or T1 replacement. Soft tissue ulceration of the ulnar aspect of the forearm with skin thickening and subcutaneous edema. Ill-defined fluid extending approximately 10 cm in craniocaudal dimension and up to 2 x 1.6 cm and axial imaging. This appears to reflect an abscess, however limited without intravenous contrast. Otherwise unremarkable. IMPRESSION: No osteomyelitis. Cellulitis and probable elongated abscess along the ulnar side of the forearm Signed by: Dr. Natanael Andrade M.D. on 11/02/2019 4:41 PM
[2019-11-02] MEDS ORDERED: SODIUM CHLORIDE 0.9% 250ML 250 ML ONE (16:55)
[2019-11-02] MEDS: VANCOMYCIN 1GM/NS 250 ML 250 ML IV SCH (17:02)
--- NOTE | 2019-11-02 20:20 | Consultation ---
DATE OF CONSULTATION: REASON FOR CONSULTATION: Abscess of the arm. HISTORY OF PRESENT ILLNESS: This patient is a very pleasant 69-year-old white female, who comes into the emergency room with redness and swelling of her arm. The patient denies any past medical history. Denies injury or specific trauma. The patient comes in. She is being admitted. PAST MEDICAL HISTORY: Denies. PAST SURGICAL HISTORY: Denies. ALLERGIES: NKA. SOCIAL HISTORY: There is no smoking, drug abuse, or alcohol abuse. FAMILY HISTORY: Hypertension. REVIEW OF SYSTEMS: HEENT: Negative. PULMONARY: Negative. CARDIAC: Negative. : Negative. GI: Negative. SKIN: There is no rash. LABORATORY DATA: White count on admission 12.18. Her serology is still pending. Sodium 136, potassium 4.0, creatinine 0.79. PHYSICAL EXAMINATION: GENERAL: Currently, alert and oriented, does not seem to be in acute distress. VITAL SIGNS: Stable. Currently afebrile. HEENT: She is not icteric. NECK: Supple. CHEST: Clear. HEART: S1, S2. No S3, S4 or murmurs.. ABDOMEN: Soft. EXTREMITIES: No edema. SKIN: No rash on the arm. There is no erythema. There is edema on the left arm about 4-5 cm. IMPRESSION: Abscess of the arm. We will put the patient on vancomycin and cefepime. Obtain wound cultures. I would recommend surgical consultation. We will follow vancomycin level, we will adjust after the availability of the cultures and sensitivity. We will follow. MD KARAN Garnica/ROSSANA /[id number]
[2019-11-03] MEDS: CEFEPIME 1GM/NS 0.9% 50 ML 50 ML IV SCH (00:29)
[2019-11-03] MEDS: VANCOMYCIN 1GM/NS 250 ML 250 ML IV SCH ×2 (01:53→14:47)
[2019-11-03 04:00] VITALS: BP 117/65
[2019-11-03 06:22] LABS: BASOPHILS # (AUTO) 0.1 (0.0-0.1); BASOPHILS % 0.8 % (0.0-1.0); EOSINOPHILS # (AUTO) 0.1 (0.0-0.4); EOSINOPHILS % 1.5 % (0.0-6.0); HEMATOCRIT 39.5 % (34.2-44.1); HEMOGLOBIN 12.5 g/dL (12.0-16.0); LYMPHOCYTES # (AUTO) 1.4 (1.0-3.2); LYMPHOCYTES % 19.5 % (18.0-39.1); MEAN CORPUSCULAR HEMOGLOBIN 30.5 pg (28-32); MEAN CORPUSCULAR HGB CONC 31.6 g/dL (31-35); MEAN CORPUSCULAR VOLUME 96.3 fL (81-99); MONOCYTES # (AUTO) 0.6 (0.2-0.8); MONOCYTES % 8.8 % (4.4-11.3); NEUTROPHILS # (AUTO) 4.9 (2.1-6.9); NEUTROPHILS % 69.1 % (38.7-80.0); PLATELET COUNT 238 x10e3/uL (140-360); RED CELL DISTRIBUTION WIDTH 12.1 % (11.7-14.4)
[2019-11-03 06:55] LABS: ALANINE AMINOTRANSFERASE 11 IU/L (0-55); ALBUMIN 2.7 g/dL (3.5-5.0); ALBUMIN/GLOBULIN RATIO 0.7 (0.8-2.0); ALKALINE PHOSPHATASE 79 IU/L (40-150); ANION GAP 13.4 mmol/L (8-16); BLOOD UREA NITROGEN 12 mg/dL (7-26); BUN/CREATININE RATIO 19 (6-25); CALCIUM 8.9 mg/dL (8.4-10.2); CARBON DIOXIDE 22 mmol/L (22-29); CHLORIDE 107 mmol/L (98-107); CREATININE, SERUM 0.63 mg/dL (0.57-1.11); EST GLOMERULAR FILTRATION RATE > 60 ML/MIN (60-); GLUCOSE 100 mg/dL (74-118); POTASSIUM 3.4 mmol/L (3.5-5.1); SODIUM 139 mmol/L (136-145)
[2019-11-03 06:58] LABS: THYROID STIMULATING HORMONE 1.607 uIU/mL (0.350-4.940)
[2019-11-03 08:00] VITALS: BP 116/64
[2019-11-03 09:23] VITALS: BP 116/64
[2019-11-03] MEDS ORDERED: POTASSIUM CHLORIDE 20 MEQ TAB CR PO STA (10:18)
[2019-11-03 12:00] VITALS: BP 121/66
--- NOTE | 2019-11-03 13:28 | Consultation ---
DATE OF CONSULTATION: 11/03/2019 CHIEF COMPLAINT: Left arm infection. HISTORY OF PRESENT ILLNESS: This patient is a 69-year-old female with 2-week history of swelling, redness, and pain with drainage in the left arm area. The patient denies history of trauma or bug bites. No fever or chills. PAST MEDICAL HISTORY: Unremarkable. She denied diabetes. ALLERGIES: SHE HAD NO DRUG ALLERGIES. SOCIAL HABITS: No smoking or alcohol abuse. REVIEW OF SYSTEMS: No chest pain, shortness of breath, cough, or fever. PHYSICAL EXAMINATION: VITAL SIGNS: Stable, afebrile. She is awake, alert, in moderate discomfort. HEENT: Sclerae are nonicteric. NECK: Supple. LUNGS: Clear. HEART: Regular rate and rhythm. ABDOMEN: Soft and nontender. EXTREMITIES: Revealed left posterolateral forearm area of erythema. SKIN: Macerations with subcutaneous abscess, approximately 5 x 3 cm in diameters. LABORATORY DATA: The patient's white cell count is 7 and hemoglobin of 12. Creatinine of 0.6. ASSESSMENT: Left forearm abscesses. PLAN: Debridement of forearm abscess under anesthesia. Attendant risks discussed. Yosvany Robertson MD DNHwoie/MODL /[id number]
--- NOTE | 2019-11-03 19:20 | Progress Note ---
DATE: SUBJECTIVE: Ms. Story is doing well. She is going for surgery tomorrow. Her wound is showing Staphylococcus species. Her white count down to 7.1. PHYSICAL EXAMINATION: GENERAL: She is currently alert, oriented, does not seem in acute distress. VITAL SIGNS: Stable, currently afebrile. HEENT: She is not icteric. NECK: Supple. CHEST: Clear. HEART: S1, S2. No S3, S4, or murmur. EXTREMITIES: Arm is wrapped. IMPRESSION: Abscess of the arm with Staphylococcus. Continue vancomycin. We will discontinue cefepime and keep the arm elevated, going for surgery tomorrow. We will modify once the sensitivity is available. Recheck CBC. Recheck Chem panel. Follow vancomycin trough. Keep the arm elevated in the meantime. Discussed with the patient. We will follow. MD KARAN Garnica/ROSSANA /[id number]
--- NOTE | 2019-11-03 19:49 | NUR ---
SPOKE MD WRIGHT REGARDING VANCOMYCIN TROUGH. NEW ORDERS RECEIVED. ORDERED TO HOLD IF GREATER THAN 20.
[2019-11-03 20:00] VITALS: BP 135/75
[2019-11-04] VITALS (7 sets, daily range): BP systolic 126–139; BP diastolic 58–73
[2019-11-04] MEDS: VANCOMYCIN 1GM/NS 250 ML 250 ML IV SCH ×2 (02:25→14:00)
[2019-11-04 06:27] LABS: BASOPHILS % 0.7 % (0.0-1.0); EOSINOPHILS # (AUTO) 0.1 (0.0-0.4); HEMATOCRIT 36.4 % (34.2-44.1); LYMPHOCYTES # (AUTO) 1.5 (1.0-3.2); LYMPHOCYTES % 25.2 % (18.0-39.1); MEAN CORPUSCULAR HEMOGLOBIN 31.8 pg (28-32); MEAN CORPUSCULAR VOLUME 96.6 fL (81-99); MONOCYTES # (AUTO) 0.6 (0.2-0.8); MONOCYTES % 9.1 % (4.4-11.3); NEUTROPHILS # (AUTO) 3.8 (2.1-6.9); NEUTROPHILS % 62.5 % (38.7-80.0); PLATELET COUNT 257 x10e3/uL (140-360); RED BLOOD COUNT 3.77 x10e6/uL (3.6-5.1); RED CELL DISTRIBUTION WIDTH 12.1 % (11.7-14.4)
--- NOTE | 2019-11-04 07:02 | NUR ---
REPORT GIVEN TO DAYSHIFT NURSE. RESTING IN BED. IN STABLE CONDITION. NO SIGNS OF IV INFILTRATION. BED LOCKED AND IN LOW POSITION. CALL LIGHT WITHIN REACH.
[2019-11-04 07:30] LABS: ALANINE AMINOTRANSFERASE 11 IU/L (0-55); ALBUMIN 2.6 g/dL (3.5-5.0); ALBUMIN/GLOBULIN RATIO 0.7 (0.8-2.0); ALKALINE PHOSPHATASE 68 IU/L (40-150); ANION GAP 12.7 mmol/L (8-16); BLOOD UREA NITROGEN 13 mg/dL (7-26); BUN/CREATININE RATIO 22 (6-25); CALCIUM 8.7 mg/dL (8.4-10.2); CARBON DIOXIDE 23 mmol/L (22-29); CHLORIDE 110 mmol/L (98-107); EST GLOMERULAR FILTRATION RATE > 60 ML/MIN (60-); GLUCOSE 103 mg/dL (74-118); POTASSIUM 3.7 mmol/L (3.5-5.1); SODIUM 142 mmol/L (136-145)
[2019-11-04] MEDS ORDERED: HYDRALAZINE HCL 20 MG/ML VIAL IV PRN (09:15)
[2019-11-04] MEDS ORDERED: HYDROCODONE/APAP 5MG-325MG TAB PO PRN (09:15)
[2019-11-04] MEDS ORDERED: ONDANSETRON HCL INJ 2MG/ML 2ML 2 MG/ML VIAL IV PRN (09:15)
[2019-11-04] MEDS ORDERED: ACETAMINOPHEN 325 MG TAB PO PRN (09:15)
[2019-11-04] MEDS ORDERED: BUPIVACAINE 0.5%/EPI 30 ML SDV INJ ONE (14:11)
--- NOTE | 2019-11-04 15:02 | NUR ---
INFECTIOUS DISEASE PROGRESS NOTE DR. WRIGHT SUBJECTIVE: Ms. Story is doing well. She is going for surgery tomorrow. Her wound is showing Staphylococcus species. Her white count down to 7.1. ROS: +fatigue, pain in arm 14 point ROS neg unless otherwise documented. PHYSICAL EXAMINATION: GENERAL: She is currently alert, oriented, does not seem in acute distress. VITAL SIGNS: Stable, currently afebrile. HEENT: She is not icteric. NECK: Supple. CHEST: Clear. HEART: S1, S2. No S3, S4, or murmur. EXTREMITIES: Arm is wrapped. LABS reviewed RADIOLOGY reviewed IMPRESSION & PLAN: 1. Abscess of the arm with Staphylococcus. -Change to Ancef -s/p surgical interventions Recheck CBC. Recheck Chem panel. Keep the arm elevated Discussed with the patient.
[2019-11-04] MEDS ORDERED: ONDANSETRON HCL INJ 2MG/ML 2ML 2 MG/ML VIAL ONE (15:18)
[2019-11-04] MEDS ORDERED: METOCLOPRAMIDE HCL 10 MG/2ML VIAL ONE (15:18)
[2019-11-04] MEDS ORDERED: FENTANYL CITRATE/PF 100MCG/2 ML INJ ONE (15:20)
[2019-11-04] MEDS ORDERED: KETAMINE HCL INJ 50 MG/ML 10 ML VIAL ONE (15:20)
[2019-11-04] MEDS: FAMOTIDINE 20 MG/2 ML VIAL IV SCH (17:00)
--- NOTE | 2019-11-04 21:35 | Operative Report ---
DATE OF PROCEDURE: 11/04/2019 SURGEON: Yosvany Robertson MD PREOPERATIVE DIAGNOSIS: Left forearm abscess. POSTOPERATIVE DIAGNOSIS: Left forearm abscess. OPERATIVE PROCEDURE: Incision and drainage of left forearm abscess. ANESTHESIA: General; Dr. Hayes. INDICATION: A 69-year-old female with 1-week history of left forearm swelling, redness, and tenderness with purulent drainage. The patient consented for incisional debridement of the left forearm abscess. Attendant risks discussed. PROCEDURE FINDINGS: Subcutaneous abscess with skin necrosis in the left forearm. DESCRIPTION OF PROCEDURE: The patient was brought to the OR intubated in the supine position. The left forearm is prepped with Betadine on the lateral aspect. Local anesthesia of 0.5% Marcaine with epinephrine was injected into the projected site of the procedure. Abscess is then opened by cannulating the skin opening with a hemostat and connected the two most extreme skin opening, the long axis of the abscess cavity and the intervening skin and soft tissue was divided with Bovie. This flayed open the abscess cavity in the subcutaneous tissue. Swab specimen obtained for culture and sensitivity. The base of the abscess cavity was then manually debrided with handle of the scalpel. Irrigation was then carried out, the cavity was then packed with iodoform gauze and pressure dressing applied with 4 x 4 and Kerlix roll. The patient tolerated the procedure well. She is awakened from anesthesia and transported to recovery room. Blood loss 4 mL. Yosvany Robertson MD DNL/MODL /[id number]
[2019-11-05] VITALS: BP 118/57
[2019-11-05] MEDS: VANCOMYCIN 1GM/NS 250 ML 250 ML IV SCH (02:05)
[2019-11-05 04:00] VITALS: BP 132/74
--- NOTE | 2019-11-05 04:03 | NUR ---
DRESSING TO L FA NOTED TO BE OFF. APPLIED CDI ABD PAD TO WOUND AND WRAPPED IN CURLEX. TOLERATED WELL.
[2019-11-05 05:55] LABS: BASOPHILS % 0.1 % (0.0-1.0); EOSINOPHILS % 0.1 % (0.0-6.0); HEMATOCRIT 35.5 % (34.2-44.1); HEMOGLOBIN 11.7 g/dL (12.0-16.0); LYMPHOCYTES # (AUTO) 1.4 (1.0-3.2); LYMPHOCYTES % 17.4 % (18.0-39.1); MONOCYTES # (AUTO) 0.5 (0.2-0.8); MONOCYTES % 5.9 % (4.4-11.3); NEUTROPHILS # (AUTO) 6.2 (2.1-6.9); PLATELET COUNT 267 x10e3/uL (140-360); RED BLOOD COUNT 3.66 x10e6/uL (3.6-5.1); RED CELL DISTRIBUTION WIDTH 11.9 % (11.7-14.4)
[2019-11-05 06:17] LABS: ALANINE AMINOTRANSFERASE 10 IU/L (0-55); ALBUMIN 2.6 g/dL (3.5-5.0); ALBUMIN/GLOBULIN RATIO 0.7 (0.8-2.0); ALKALINE PHOSPHATASE 74 IU/L (40-150); ANION GAP 12.7 mmol/L (8-16); BLOOD UREA NITROGEN 13 mg/dL (7-26); BUN/CREATININE RATIO 21 (6-25); CALCIUM 8.7 mg/dL (8.4-10.2); CARBON DIOXIDE 23 mmol/L (22-29); CHLORIDE 109 mmol/L (98-107); CREATININE, SERUM 0.61 mg/dL (0.57-1.11); EST GLOMERULAR FILTRATION RATE > 60 ML/MIN (60-); GLUCOSE 112 mg/dL (74-118); POTASSIUM 3.7 mmol/L (3.5-5.1); SODIUM 141 mmol/L (136-145)
--- NOTE | 2019-11-05 06:52 | NUR ---
REPORT GIVEN TO DAYSHIFT NURSE. RESTING IN BED. AAOX3. NO SIGNS IV INFILTRATION. BED LOCKED AND IN LOW POSITION. CALL LIGHT WITHIN REACH. BED ALARM ACTIVATED.
[2019-11-05 07:56] VITALS: BP 121/71
[2019-11-05 08:04] VITALS: BP 121/71
[2019-11-05] MEDS: FAMOTIDINE 20 MG/2 ML VIAL IV SCH ×2 (09:00→09:07)
[2019-11-05 12:17] VITALS: BP 145/78
--- NOTE | 2019-11-05 12:29 | Progress Note ---
DATE: SUBJECTIVE: The patient is seen and evaluated. Available labs and notes reviewed. Discussed with Dr. Stout. Discussed with attending team. REVIEW OF SYSTEMS: Currently no nausea, vomiting, fever, chills, chest pain, or shortness of breath and left arm pain seems to be controlled. PHYSICAL EXAMINATION: VITAL SIGNS: Temperature is 98.4, pulse 63, respirations 20, and blood pressure 121/71. GENERAL: Alert and oriented, no acute distress. CV: S1 and S2. CHEST: Equal expansion. Clear to auscultation. No acute distress. HEENT: Moist. No pallor. No JVD. ABDOMEN: Soft and nontender. No distention. EXTREMITIES: Left upper extremity dressed. Wounds packed on local care. MEDICATIONS: Medication list reviewed and from ID point of view, the patient is on vancomycin IV. LABORATORY STUDIES: White count of 8.11, hemoglobin 11.7, and platelet 267. Sodium 141, potassium 3.7, and creatinine 0.61. Toxicology; vancomycin trough was 10.9 11/04/2019. Serology; coronavirus PCR not detected. MICROBIOLOGY: Blood culture 11/01/2019, negative. Wound culture 11/02/2019, showed MSSA and wound culture from 11/04/2019, shows Staphylococcus aureus with sensitivity in progress. ASSESSMENT AND PLAN: Left upper extremity abscess, status post I and D of the left forearm abscess on 11/04/2019, by Dr. Robertson. Wound culture shows methicillin-sensitive Staphylococcus aureus. The patient refuses to take oral antibiotic and states that she has no tolerance for oral antibiotics and requests an IV antibiotics. MRI of the left upper extremity showed no osteomyelitis. Cultures as mentioned above. We changed antibiotics to Ancef 2 g q.[address] order for case management to set up the patient with Ancef 2 g q.8 for 10 days. The patient about to get a PICC line. Further management of this patient based on daily findings on laboratory and physical examination. Discussed with Dr. Stout. Please refer to chart for more information. Also discussed with the attending team. Dictated by Ra Madrigal PA-C (Al) Sy Stout MD /MODL /[id number]
--- NOTE | 2019-11-05 12:46 | NUR ---
Spoke to pt at bedside regarding home iv abx. Pt gave choice for [facility]. Signed choice letter placed in front of chart. Copy to pt. Pt states she was fine with [facility] setting up home health thru any company that takes her insurance. IMM letter delivered and explained to pt. She verbalized understanding, states she's hoping to go home today. Signed copy placed in chart. Copy to pt. Referral faxed to [facility] at [phone] / . Carmela with [facility] was informed of referral.
[2019-11-05] MEDS ORDERED: CEFAZOLIN SOD 1 GM/NS 50ML 50 ML IV SCH (14:00)
[2019-11-05 15:44] VITALS: BP 115/63
--- NOTE | 2019-11-05 17:14 | Diagnostic Imaging Report ---
EXAM: CHEST XRAY LINE PLACEMENT DATE: 11/05/2019 4:50 PM INDICATION: PICC line placement COMPARISON: None FINDINGS: Right-sided PICC line identified with catheter tip terminating appropriately over the SVC. The lungs are symmetrically expanded without evidence for large focal consolidation, pneumothorax, or significant pleural effusion. The cardiomediastinal silhouette and pulmonary vasculature are unremarkable. No acute osseous abnormalities identified. IMPRESSION: Right-sided PICC line identified in appropriate position. Signed by: Dr. Daryl Arriaga MD on 11/05/2019 5:11 PM
--- NOTE | 2019-11-05 17:22 | NUR ---
Carmela, RN with [facility] is here now to do bedside teaching. Medications will be delivered tonight. Home health arranged with [facility], . Clinicals were sent to [facility] by [facility]. Additional wound care orders faxed to [phone]. Spoke with Regine at [facility] and she states they have accepted pt and will reach out to her to schedule admit. Home health and [facility] contact information were printed and given to pt.
[2019-11-05] MEDS ORDERED: ONDANSETRON HCL 4 MG ORAL DISINTEGRATING TAB PO PRN (18:45)
--- NOTE | 2019-11-05 20:45 | NUR ---
PT IS DISCHARGED TO HOME .DRESSING CHANGED AND REMOVED LINE PT HAS PICC LINE .GIVEN PT BELONGING .NO ACUTE DISTRESS NOTED CALL LIGHT WITH IN REACH .CONTINUE TO MONITOR
--- NOTE | 2019-11-06 07:32 | Discharge Summary ---
ADMISSION DIAGNOSES: Left arm wound with cellulitis, present on admission with sepsis; obesity with a BMI of 36.3. DISCHARGE DIAGNOSES: Left arm wound with cellulitis, present on admission with sepsis; obesity with a BMI of 36.3; left arm abscess, rule out osteomyelitis; left arm abscess with Staph and sepsis, present on admission. HISTORY: None. SURGICAL HISTORY: Spinal tumor removal, right ankle surgery. FAMILY HISTORY: The patient's brother had diabetes. The patient's mother had cancer. SOCIAL HISTORY: Noncontributory. HOSPITAL COURSE: A 69-year-old female admits with complaints of left arm boil, that began about 1 to 1-1/2 weeks prior to admission. One boil healed, but the other 2 boils got worse. She denies fever. On Tuesday, it began draining pus and blood. She attempted to take care of it on her own at home, but they continued to worsen so she came to the ER. On admission, x-ray of the forearm showed diffuse subcutaneous edema. No underlying osseous abnormality. MRI of the forearm showed no osteomyelitis. Cellulitis and probable elongated abscess. ID and Surgery were both consulted. Blood cultures were negative. Wound culture came back positive for Staph. Per Infectious Disease, the patient was placed on cefazolin and vancomycin during hospitalization. She will discharge home with IV antibiotics as she says she is unable to tolerate p.o. antibiotics. So, she will go with a PICC line for 10 days of Ancef q.8 hours. She will also follow up with Dr. Stout in 2 weeks after discharge. The patient had an I and D by Dr. Robertson on 11/04/2019, which was packed with iodoform gauze, wrapped with 4 x 4 and Kerlix. She will continue wound care at home. She will follow up with Dr. Robertson as discussed. The patient understands discharge instructions and agrees to plan. Vital signs stable, the patient is afebrile. Dictated by Rae Barber NP MD NORBERTO Ordaz/LANEL /[id number]
== END 2019-11-05 20:30 | disposition home or self-care (01) | DRG 854 ==
LOC: ER 16:43 → ERHOLD 18:22 → MED/SURG2 11-02 02:42
PROVIDERS: ADMIT Internal Medicine; ATTEND Internal Medicine
PROC: 0J9H0ZZ Drainage of Left Lower Arm Subcutaneous Tissue and Fascia, Open Approach (ICD-10-PCS; principal; 2019-11-04 14:07)
PROC: 02HV33Z Insertion of Infusion Device into Superior Vena Cava, Percutaneous Approach (ICD-10-PCS; 2019-11-05)
PROC: B548ZZA Ultrasonography of Superior Vena Cava, Guidance (ICD-10-PCS; 2019-11-05)
DX: A41.9 Sepsis, unspecified organism (principal); L03.114 Cellulitis of left upper limb; L02.414 Cutaneous abscess of left upper limb; E87.6 Hypokalemia; Z83.3 Family history of diabetes mellitus; Z80.9 Family history of malignant neoplasm, unspecified; E66.9 Obesity, unspecified; Z68.36 Body mass index [BMI] 36.0-36.9, adult; B95.61 Methicillin susceptible Staphylococcus aureus infection as the cause of diseases classified elsewhere
CPT/HCPCS: 36415; 36569; 71045; 80053; 80202; 81001; 83036; 83605; 84443; 85025; 87040; 87071; 87075; 87186; 87205; 87635; 93971; 99284; J0690; J0692; J1100; J2001; J2405; J2765; J3010; J3370; J7050

== ENCOUNTER 2019-12-03 13:29 | Emergency (ER) | payer MEDICARE, OTHER ==
[~2019-12-03] VITALS: Ht 152.4 cm; Wt 84.4 kg
[~2019-12-03 13:29] MED LIST changes: -DEXAMETHASONE SOD PHOS INJ 4 MG/ML VIAL ONE; -ETOMIDATE 2 MG/ML 10 ML INJ IV ONE; -LIDOCAINE HCL 2% LOCAL INJ 5 ML SDV VIAL INJ ONE; -ONDANSETRON HCL INJ 2MG/ML 2ML 2 MG/ML VIAL ONE; -SEVOFLURANE INHAL SOLN 250 ML PEN BTL ONE
--- NOTE | 2019-12-03 14:24 | Emergency Department Note ---
History of Present Illnes History of Present Illness Chief Complaint: COVID PUI History of Present Illness This is a 69 year old female arrived to the ED with complaints of a cough and diarrhea for several days. Chief Complaint Comment Pt reports diarrhea x5 days. Pt states she went to an urgent care [facility] d/t diarrhea. Pt states her O2 sat was 89% on RA and was told to come to the ER for futher eval. Pt was tested for COVID here at [facility] on 11/02/19 but it was for Gen admin for cellulitis. Pt now with new symptoms Historian: Patient Arrival Mode: Car Monitoring Analyst Required: No Onset (how long ago): day(s) Severity: mild Duration (how long): day(s) Timing of current episode: constant Progression: worsening Chronicity: new Associated symptoms: Reports fever/chills, Reports nausea/vomiting Past Medical/Family History Physician Review I have reviewed the patient's past medical and family history. Any updates have been documented here. 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 Social History Smoking Cessation: Never Smoker Alcohol Use: None Any Illegal Drug Use: No Physically hurt or threatened: No Other Last Tetanus: NEEDS Any Pre-Existing Lines (PICC,: No Review of Systems Review of Systems Constitutional: Reports as per HPI EENTM: Reports no symptoms Cardiovascular: Reports no symptoms Respiratory: Reports as per HPI, Reports chest congestion, Reports cough, Reports excessive phlegm production Gastrointestinal: Reports as per HPI, Reports diarrhea Genitourinary: Reports no symptoms Musculoskeletal: Reports no symptoms Integumentary: Reports no symptoms Neurological: Reports no symptoms Psychological: Reports no symptoms Endocrine: Reports no symptoms Hematological/Lymphatic: Reports no symptoms Physical Exam Related Data Allergies: Coded Allergies: cyclobenzaprine (Verified Allergy, Unknown, 11/01/19) Triage Vital Signs Vital Signs Date Time Temp Pulse Resp B/P (MAP) Pulse Ox O2 Delivery O2 Flow Rate FiO2 12/03/19 13:42 99.3 95 18 111/66 87 Room Air 12/03/19 14:00 3.0 Vital signs reviewed: Yes Physical Exam CONSTITUTIONAL Constitutional: Present well-developed, Present well-nourished HENT HENT: Present normocephalic, Present atraumatic, Present oropharynx clear/moist, Present nose normal HENT L/R: Present left ext ear normal, Present right ext ear normal EYES Eyes: Reports PERRL, Reports conjunctivae normal NECK Neck: Present ROM normal PULMONARY Pulmonary: Present effort normal, Present breath sounds normal CARDIOVASCULAR Cardiovascular: Present regular rhythm, Present heart sounds normal, Present capillary refill normal, Present normal rate GASTROINTESTINAL Abdominal: Present soft, Present nontender, Present bowel sounds normal GENITOURINARY Genitourinary: Present exam deferred SKIN Skin: Present warm, Present dry MUSCULOSKELETAL Musculoskeletal: Present ROM normal NEUROLOGICAL Neurological: Present alert, Present oriented x 3, Present no gross motor or sensory deficits PSYCHOLOGICAL Psychological: Present mood/affect normal, Present judgement normal Results Laboratory Lab results reviewed: Yes Laboratory comments Laboratory Tests Test 12/03/19 15:54 12/03/19 15:19 Sodium Level 138 mmol/L (136-145) Potassium Level 4.0 mmol/L (3.5-5.1) Chloride Level 103 mmol/L (98-107) Carbon Dioxide Level 23 mmol/L (22-29) Anion Gap 16.0 mmol/L (8-16) Blood Urea Nitrogen 17 mg/dL (7-26) Creatinine 0.66 mg/dL (0.57-1.11) Estimat Glomerular Filtration Rate > 60 ML/MIN (60-) BUN/Creatinine Ratio 26 (6-25) Glucose Level 93 mg/dL (74-118) Calcium Level 9.0 mg/dL (8.4-10.2) Total Bilirubin 0.7 mg/dL (0.2-1.2) Aspartate Amino Transf (AST/SGOT) 36 IU/L (5-34) Alanine Aminotransferase (ALT/SGPT) 18 IU/L (0-55) Alkaline Phosphatase 65 IU/L (40-150) Creatine Kinase 55 IU/L (29-168) Creatine Kinase MB 0.60 ng/mL (0-5.0) Troponin I 0.007 ng/mL (0-0.300) Total Protein 7.7 g/dL (6.5-8.1) Albumin 2.8 g/dL (3.5-5.0) Globulin 4.9 g/dL (2.3-3.5) Albumin/Globulin Ratio 0.6 (0.8-2.0) White Blood Count 8.74 x10e3/uL (4.8-10.8) Red Blood Count 4.78 x10e6/uL (3.6-5.1) Hemoglobin 14.5 g/dL (12.0-16.0) Hematocrit 44.0 % (34.2-44.1) Mean Corpuscular Volume 92.1 fL (81-99) Mean Corpuscular Hemoglobin 30.3 pg (28-32) Mean Corpuscular Hemoglobin Concent 33.0 g/dL (31-35) Red Cell Distribution Width 12.7 % (11.7-14.4) Platelet Count 190 x10e3/uL (140-360) Neutrophils (%) (Auto) 73.6 % (38.7-80.0) Lymphocytes (%) (Auto) 16.6 % (18.0-39.1) Monocytes (%) (Auto) 8.1 % (4.4-11.3) Eosinophils (%) (Auto) 0.2 % (0.0-6.0) Basophils (%) (Auto) 0.5 % (0.0-1.0) Neutrophils # (Auto) 6.4 (2.1-6.9) Lymphocytes # (Auto) 1.5 (1.0-3.2) Monocytes # (Auto) 0.7 (0.2-0.8) Eosinophils # (Auto) 0.0 (0.0-0.4) Basophils # (Auto) 0.0 (0.0-0.1) Absolute Immature Granulocyte (auto 0.09 x10e3/uL (0-0.1) Imaging Imaging results reviewed: Yes Impressions IMPRESSION: Interval development of left mid lung and lower lung airspace opacities consistent with pneumonia. Assessment & Plan Medical Decision Making MDM 69-year-old well-appearing female arrives to the ED with complaints of cough fever and diarrhea. Patient is clinically presenting with signs and symptoms c onsistent with Covid 19. Patient informed she is positive until proven otherwise. Patient's oxygen saturation remained 99% even on exertion, no evidence of tachypnea or dyspnea noted in the ED. Spoke present length about the importance of sleeping on his stomach and rotating from side to side. Z-Nereida given, signs and symptoms for return discussed. In the light of the Covid pandemic, disaster medicine care was given- Patient's imaging reviewed,- chest x-ray shows questionable patchy airspace opacities . Patient clinically appears well, outpatient pulmonary follow-up given. The red flags for return to emergency department given. Patient understands the emergency department is open at all times to serve his needs as well as the needs of the community and given that he requires no supplemental oxygen and is speaking in full sentences with no distress he is stable to go home and quarantine. Assessment & Plan Final Impression: (1) COVID-19 Depart Disposition: HOME, SELF-CARE Last Vital Signs Date Time Temp Pulse Resp B/P (MAP) Pulse Ox O2 Delivery O2 Flow Rate FiO2 12/03/19 14:00 94 Nasal Cannula 3.0 12/03/19 13:42 99.3 95 18 111/66 Home Meds Active Scripts Dexamethasone (Decadron) 6 Mg Tablet, 1 TAB PO DAILY, #5 Prov:SERGIO ARMSTRONG DO 12/03/19 Azithromycin (Z-NEREIDA) 250 Mg Tablet, 1 PKG PO DIRECTED, #1 PKG 0 Refills Prov:SERGIO ARMSTRONG DO 12/03/19 SERGIO ARMSTRONG, Dec 03, 2019 14:24
[2019-12-03 15:38] LABS: BASOPHILS % 0.5 % (0.0-1.0); EOSINOPHILS % 0.2 % (0.0-6.0); HEMOGLOBIN 14.5 g/dL (12.0-16.0); LYMPHOCYTES # (AUTO) 1.5 (1.0-3.2); LYMPHOCYTES % 16.6 % (18.0-39.1); MEAN CORPUSCULAR HEMOGLOBIN 30.3 pg (28-32); MEAN CORPUSCULAR VOLUME 92.1 fL (81-99); MONOCYTES # (AUTO) 0.7 (0.2-0.8); MONOCYTES % 8.1 % (4.4-11.3); NEUTROPHILS # (AUTO) 6.4 (2.1-6.9); NEUTROPHILS % 73.6 % (38.7-80.0); PLATELET COUNT 190 x10e3/uL (140-360); RED BLOOD COUNT 4.78 x10e6/uL (3.6-5.1); RED CELL DISTRIBUTION WIDTH 12.7 % (11.7-14.4)
--- NOTE | 2019-12-03 16:18 | Diagnostic Imaging Report ---
EXAMINATION: CHEST SINGLE (PORTABLE) INDICATION: Hypoxia COMPARISON: Chest radiograph 11/05/2019 FINDINGS: LINES/TUBES:None LUNGS:Interval development of left mid lung and lower lung airspace opacities. PLEURA:No pleural effusion or pneumothorax. MEDIASTINUM:The cardiomediastinal silhouette appears unchanged in size and shape. BONES/SOFT TISSUES:No acute osseous injury. ABDOMEN:No free air under the diaphragm. IMPRESSION: Interval development of left mid lung and lower lung airspace opacities consistent with pneumonia. Signed by: Prabha Vallejo MD on 12/03/2019 4:15 PM
[2019-12-03 17:22] LABS: ALANINE AMINOTRANSFERASE 18 IU/L (0-55); ALBUMIN 2.8 g/dL (3.5-5.0); ALBUMIN/GLOBULIN RATIO 0.6 (0.8-2.0); ALKALINE PHOSPHATASE 65 IU/L (40-150); BLOOD UREA NITROGEN 17 mg/dL (7-26); BUN/CREATININE RATIO 26 (6-25); CARBON DIOXIDE 23 mmol/L (22-29); CHLORIDE 103 mmol/L (98-107); CREATINE KINASE 55 IU/L (29-168); CREATININE, SERUM 0.66 mg/dL (0.57-1.11); EST GLOMERULAR FILTRATION RATE > 60 ML/MIN (60-); GLUCOSE 93 mg/dL (74-118); SODIUM 138 mmol/L (136-145)
[2019-12-03] MEDS ORDERED: DECADRON6 MG PO (17:42)
[2019-12-03] MEDS ORDERED: AZITHROMYCIN250 MG PO (17:42)
== END 2019-12-03 19:33 | disposition home or self-care (01) ==
LOC: ER 14:21
DX: U07.1 COVID-19 (principal); R50.9 Fever, unspecified; R05 Cough; R19.7 Diarrhea, unspecified; R11.2 Nausea with vomiting, unspecified
CPT/HCPCS: 36415; 71045; 80053; 82550; 82553; 84484; 85025; 87635; 94760; 99283

== ENCOUNTER 2019-12-10 10:11 | Emergency (ER) | payer MEDICARE ==
[~2019-12-10] VITALS: Ht 152.4 cm; Wt 84.4 kg
[~2019-12-10 10:11] MED LIST changes: +AZITHROMYCIN250 MG PO; +DECADRON6 MG PO
--- NOTE | 2019-12-10 10:23 | Emergency Department Note ---
History of Present Illnes History of Present Illness History of Present Illness This is a 69 year old female presents with 7 day h/o of rectal lesion. Denies f/c/n/v. Recent dx of COVID-19 results. Seen at bedside NAD. Seen at Urgent care this AM and was told that her oxygen saturation was at 90% . Arrival Mode: Car Onset (how long ago): day(s) (7) Severity: mild Onset quality: gradual Duration (how long): day(s) (7) Progression: unchanged Chronicity: new Context: Reports recent illness Relieving factors: none Exacerbating factors: none Associated symptoms: Reports denies other symptoms Treatments prior to arrival: none Past Medical/Family History Physician Review I have reviewed the patient's past medical and family history. Any updates have been documented here. 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 2014 Social History Smoking Cessation: Never Smoker Alcohol Use: None Any Illegal Drug Use: No Other Last Tetanus: NEEDS Review of Systems Review of Systems Constitutional: Reports no symptoms EENTM: Reports no symptoms Cardiovascular: Reports no symptoms Respiratory: Reports no symptoms Gastrointestinal: Reports no symptoms Genitourinary: Reports no symptoms Musculoskeletal: Reports no symptoms Integumentary: Reports rash Neurological: Reports no symptoms Psychological: Reports no symptoms Endocrine: Reports no symptoms Hematological/Lymphatic: Reports no symptoms Physical Exam Related Data Allergies: Coded Allergies: cyclobenzaprine (Verified Allergy, Unknown, 11/01/19) Triage Vital Signs Vital Signs Date Time Temp Pulse Resp B/P (MAP) Pulse Ox O2 Delivery O2 Flow Rate FiO2 12/10/19 10:38 99.0 90 26 130/79 92 Room Air Vital signs reviewed: Yes Physical Exam CONSTITUTIONAL Constitutional: Present well-developed, Present well-nourished HENT HENT: Present normocephalic, Present atraumatic, Present oropharynx clear/moist, Present nose normal HENT L/R: Present left ext ear normal, Present right ext ear normal EYES Eyes: Reports PERRL, Reports conjunctivae normal NECK Neck: Present ROM normal PULMONARY Pulmonary: Present effort normal, Present breath sounds normal CARDIOVASCULAR Cardiovascular: Present regular rhythm, Present heart sounds normal, Present capillary refill normal, Present normal rate GASTROINTESTINAL Abdominal: Present other (external hemorrhoid x 2 non-thrombosed at 3 o'clock and 9 o'clock uncomplicated) GENITOURINARY Genitourinary: Present exam deferred SKIN Skin: Present warm, Present dry MUSCULOSKELETAL Musculoskeletal: Present ROM normal NEUROLOGICAL Neurological: Present alert, Present oriented x 3, Present no gross motor or sensory deficits PSYCHOLOGICAL Psychological: Present mood/affect normal, Present judgement normal Assessment & Plan Medical Decision Making MDM Diff Dx : ulcerative colitis flare up , emmie-rectal abscess, emmie-anal abscess, fourniere's gangrene, hemmorhoid. Patient recently seen here with (+) COVID-19 results. Patient instructed to continue self quarantine. Given Rx Albuterol, and azithromycin Assessment & Plan Final Impression: (1) COVID-19 (2) Hemorrhoids, external without complications Depart Disposition: HOME, SELF-residential Meds Active Scripts Dexamethasone (Decadron) 6 Mg Tablet, 1 TAB PO DAILY, #5 Prov:SERGIO ARMSTRONG DO 12/03/19 Azithromycin (Z-NEREIDA) 250 Mg Tablet, 1 PKG PO DIRECTED, #1 PKG 0 Refills Prov:SERGIO ARMSTRONG DO 12/03/19 MADAI JEFFERSON DO Dec 10, 2019 10:23
[2019-12-10 11:04] VITALS: BP 127/80
--- NOTE | 2019-12-10 11:20 | NUR ---
Pt given DC prescriptions, pt reports she does not want to take antibiotics d/t diarrhea. Pt given information regarding risk of not taking antibiotics.
== END 2019-12-10 11:09 | disposition home or self-care (01) ==
LOC: ER 10:48
DX: K64.4 Residual hemorrhoidal skin tags (principal); U07.1 COVID-19; Z98.890 Other specified postprocedural states; Z88.8 Allergy status to other drugs, medicaments and biological substances
CPT/HCPCS: 99284

== ENCOUNTER 2024-04-18 11:26 | Emergency (ER) | payer MEDICARE ==
[~2024-04-18] VITALS: Ht 152.4 cm; Wt 83.9 kg
[~2024-04-18 11:26] MED LIST changes: +ELIMITE60 GM TOP; +FLUOCINONIDE15 GM TOP
[2024-04-18 11:51] VITALS: PULSE 61; RESP 18; TEMP 97
[2024-04-18 13:29] VITALS: BP 159/88; PULSE 61; RESP 18; TEMP 98.2; O2SAT 97
== END 2024-04-18 14:32 | disposition home or self-care (01) ==
LOC: FSED 11:43
DX: S00.83XA Contusion of other part of head, initial encounter (principal); W18.2XXA Fall in (into) shower or empty bathtub, initial encounter; Y93.E1 Activity, personal bathing and showering; Y92.89 Other specified places as the place of occurrence of the external cause; I10 Essential (primary) hypertension; E78.5 Hyperlipidemia, unspecified; M81.0 Age-related osteoporosis without current pathological fracture
CPT/HCPCS: 70450; 99283